=== PATIENT | female | born 1970 | race Caucasian/White ===

== ENCOUNTER → 2018-08-23 08:18 | Outpatient (CLI) | payer OTHER, SELFPAY ==
--- NOTE | 2018-08-23 08:21 | MM_ITS ---
MM Dig screening mamm BI w/CAD CAD Screening COMPARISON: Digital mammograms with CAD 12/15/2016 and 12/10/2015 INDICATION: There is no personal or family history of breast cancer. There has been a previous biopsy left breast for benign disease. TECHNIQUE: Standard CC and MLO images were obtained. R2 CAD reviewed. FINDINGS: Prominent diffuse and heterogenic fibroglandular densities are seen in the central portions of both breast. There are few benign-appearing microcalcifications in each breast. Again noted is a biopsy clip left breast. There is no new or suspicious lesion in either breast and there are no suspicious microcalcifications. IMPRESSION: Moderate diffuse breast density with no suspicious lesion seen BI-RADS Category: 2 Benign Finding(s) RECOMMENDED FOLLOW-UP: 1YR - 1 YEAR FOLLOW-UP (A letter has been sent to the patient regarding results of the study.)
== END ==
PROVIDERS: PCP Family Medicine; Visit Provider Obstetrics & Gynecology
DX: Z12.31 Encounter for screening mammogram for malignant neoplasm of breast (principal)
CPT/HCPCS: 77067

== ENCOUNTER → 2019-02-24 08:38 | Outpatient (CLI) | payer OTHER, SELFPAY ==
--- NOTE | 2019-02-24 08:42 | US_ITS ---
US gallbladder HISTORY: Cholelithiasis, epigastric pain ITS.REASON: gallstones ORDERING PHYSICIAN: Ronn Rosas MD PATIENT AGE: 48 years Comparison: None FINDINGS: PANCREAS: Unremarkable. No obvious mass or abnormal fluid collection. No ductal dilatation LIVER: There is a 18 mm cyst in the right hepatic lobe RIGHT KIDNEY: Unremarkable. Normal size and echogenicity. No hydronephrosis GALLBLADDER: Multiple gallstones are present. The gallbladder is contracted with a thickened wall measuring up to 5 mm. No pericholecystic fluid is evident. Common bile duct is normal at 3 mm. IMPRESSION: Cholelithiasis with thickened gallbladder wall Hepatic cyst
== END ==
PROVIDERS: PCP Family Medicine; Visit Provider Surgery
DX: K82.9 Disease of gallbladder, unspecified (principal); K80.20 Calculus of gallbladder without cholecystitis without obstruction
CPT/HCPCS: 76705

== ENCOUNTER → 2019-03-01 16:50 | Outpatient (CLI) | payer OTHER, SELFPAY ==
[2019-03-01 17:01] LABS: Basophils # 0.1 K/mm3 (0-0.2); Basophils % 0.8 % (0.1-2.0); Eosinophils # 0.2 K/mm3 (0.0-0.4); Eosinophils % 1.7 % (0.1-12.0); Hematocrit 38.3 % (37.0-47.0); Hemoglobin 12.7 g/dL (12.2-16.2); Lymphocytes # 1.6 K/mm3 (0.7-4.5); Lymphocytes % 16.2 % (10-50); Mean Corpuscular HGB Conc 33.1 g/dL (31.8-35.4); Mean Corpuscular Hemoglobin 28.9 pg (27.0-31.2); Mean Corpuscular Volume 87.2 fl (81-99); Mean Platelet Volume 7.6 fl (7.4-10.4); Monocytes # 0.4 K/mm3 (0.1-1.0); Monocytes % 3.8 % (1.7-9.3); Neutrophils # 7.9 K/mm3 (1.8-7.8); Neutrophils % 77.5 % (37.0-80.0); Platelet Count 311 K/mm3 (142-424); Red Blood Count 4.39 M/mm3 (4.20-5.40); Red Cell Distribution Width 12.8 % (11.5-17.5); White Blood Count 10.2 K/mm3 (4.8-10.8)
[2019-03-01 19:02] LABS: Alanine Aminotransferase 18 U/L (12-78); Albumin Level 3.5 gm/dL (3.4-5.0); Alkaline Phosphatase 120 U/L (46-116); Anion Gap 12.6 mEq/L (5-15); Aspartate Amino Transferase 6 U/L (15-37); Bilirubin,Total 0.6 mg/dL (0.2-1.0); Blood Urea Nitrogen 6 mg/dL (7-18); Calcium 8.8 mg/dL (8.5-10.1); Carbon Dioxide 27 mmol/L (21.0-32.0); Chloride 100 mmol/L (98-107); Creatinine,Serum 0.77 mg/dL (0.55-1.02); Estimated Glomerular Filt Rate 81 ml/min (>60); GFR (African American) 98 ML/MIN (>60); Globulin 3.6 gm/dl (1.3-3.2); Glucose 96 mg/dL (74-106); Potassium 3.6 mmoL/L (3.5-5.1); Sodium 136 mmol/L (136-145); Total Protein,Serum 7.1 gm/dL (6.4-8.2)
== END ==
PROVIDERS: Visit Provider Surgery
DX: K80.20 Calculus of gallbladder without cholecystitis without obstruction (principal)
CPT/HCPCS: 36415; 80053; 85025

== ENCOUNTER → 2020-05-28 10:18 | Outpatient (CLI) | payer OTHER, SELFPAY | PROVIDERS: PCP Family Medicine; Visit Provider Family Medicine | DX: R00.2 Palpitations (principal) | CPT/HCPCS: 93225; 93226 ==

== ENCOUNTER → 2020-07-24 11:19 | Outpatient (CLI) | payer OTHER, SELFPAY ==
[2020-07-24 13:12] LABS: Basophils # 0.1 K/mm3 (0-0.2); Basophils % 0.7 % (0.1-2.0); Eosinophils # 0.3 K/mm3 (0.0-0.4); Eosinophils % 2.5 % (0.1-12.0); Hematocrit 43.8 % (37.0-47.0); Hemoglobin 15.3 g/dL (12.2-16.2); Lymphocytes # 1.4 K/mm3 (0.7-4.5); Lymphocytes % 13.7 % (10-50); Mean Corpuscular HGB Conc 34.8 g/dL (31.8-35.4); Mean Corpuscular Volume 89.1 fl (81-99); Mean Platelet Volume 8.2 fl (7.4-10.4); Monocytes # 0.4 K/mm3 (0.1-1.0); Monocytes % 3.8 % (1.7-9.3); Neutrophils # 7.9 K/mm3 (1.8-7.8); Neutrophils % 79.3 % (37.0-80.0); Platelet Count 279 K/mm3 (142-424); Red Blood Count 4.92 M/mm3 (4.20-5.40); Red Cell Distribution Width 13.5 % (11.5-17.5)
[2020-07-26 06:27] LABS: Covid-19 Nasal PCR Sendout Lex NOT DETECTED
== END ==
PROVIDERS: PCP Family Medicine; Visit Provider Family Medicine
DX: Z03.818 Encounter for observation for suspected exposure to other biological agents ruled out (principal)
CPT/HCPCS: 36415; 85025; U0004

== ENCOUNTER → 2020-10-26 12:41 | Outpatient (CLI) | payer OTHER, SELFPAY ==
--- NOTE | 2020-10-26 12:44 | XR_ITS ---
PROCEDURE: XR SHOULDER LT MIN 2V CLINICAL INDICATION: LT SHOULDER PAIN Left shoulder pain COMPARISON: No exams were available for comparison FINDINGS: No fracture or dislocation. No lytic or blastic change. There is normal mineralization. The joint spaces are well-preserved. No significant degenerative/arthritic changes. No erosive changes evident. Other findings:None. IMPRESSION: No acute findings. Dictated by: Jim Holguin MD 10/26/2020 14:43 Jim Holguin MD in [place] 10/26/2020 14:43
== END ==
PROVIDERS: PCP Family Medicine; Visit Provider Family Medicine
DX: M25.512 Pain in left shoulder (principal)
CPT/HCPCS: 73030

== ENCOUNTER 2020-12-12 15:00 | Outpatient (RCR) | payer OTHER, SELFPAY ==
--- NOTE | 2020-10-31 08:27 | HMH.OTOPEV ---
OT Inpatient Evaluation Rehab OT Outpatient Eval Start: 10/31/20 08:18 Freq: Status: Active Protocol: Document 10/31/20 08:19 RMMICHI (Rec: 10/31/20 08:27 [id number] Electronically Signed By Ligia Roberts OT 10/31/20 08:19 Outpatient Therapy Subjective History Subjective History Pt is a 50 year old female who reports to therapy for initial evaluation to L shoulder. Pt reports ~3 months ago she was throwing a ball for her dog and threw it awkwardly . After the throw she felt a pop . Since then she has experienced a constant dull ache and limited motion due to pain. Pt does demonstrate with decreased AROM and strength at left shoulder. Pt will continue to be seen twice a week in order to address all L shoulder deficits. Chief Complaint Pain,Stiff,Weakness Symptom Type Ache,Dull Symptoms Relieved By Nothing Symptoms Aggravated By Physical Activity,Lifting Prior Functional Limitations None Current Functional Limitations Reaching,Lifting,Housework, Dressing,Sleeping,Recreation Activity Symptom Description Constant but Variable Level of pain today (0-10) 3 Pain scale - at its best (0-10) 2 Pain scale - at its worst (0-10) 7 Shoulder/Elbow Eval Shoulder Objective Measurements Shoulder ROM Left Shoulder Abduction Active Range of 95 degrees Motion (degrees) Shoulder Flexion Active Range of Motion 110 degrees (degrees) Query Text: Shoulder External Rotation Active Range 55 degrees of Motion (degrees) Shoulder Internal Rotation Active Range 35 degrees of Motion (degrees) Shoulder MMT Shoulder Extension Strength Grade 3- Fair- Shoulder Flexion Strength Grade 3- Fair- Shoulder External Rotation Strength 3- Fair- Grade Shoulder Internal Rotation Strength 3- Fair- Grade Shoulder Strength Patient Testing Sitting Position Shoulder Special Tests impingement sign present shoulder exam left standard Shoulder Empty Can (Supraspinatus) Test Positive Left Shoulder Boles-Noah Impingement Positive Left Test Shoulder Neer Impingement Test Positive Left
--- NOTE | 2020-11-26 15:54 | HMH.RHREAS ---
Rehab Reassessment Rehab OP Re-assessment Start: 11/26/20 14:55 Freq: Status: Active Protocol: Document 11/26/20 14:56 JOSE (Rec: 11/26/20 15:54 [email or web address] [id number]) Electronically Signed By Ligia Roberts OT 11/26/20 14:56 Rehab Re-assessment Subjective Subjective They denied my MRI. Objective Objective Notes Pt continues to be seen twice weekly in order to address left shoulder deficits. Each session pt engages in L shoulder AAROM, AROM, and strengthening exercises. Pt is also passively ranged at left shoulder due to decreased AROM. Modalities are provided in order to decrease pain/inflammation. Assessment Progress Assessment Slower Than Expected Assessment Notes Pt continues to demonstrate with decreased AROM/strength despite participation in therapy. She does not demonstrate improvement in either area after re- assessment. Pt also continues to c/o a 7/10 at left shoulder at worst. Pt does not feel she has made much improvement since starting therapy. Pt had recently returned to doctor in order to try to get a MRI on left shoulder. However, insurance denied a MRI and suggest she continue therapy for 6 weeks. Current AROM L shoulder Flex: 105 degrees Abd: 95 degrees ER: 25 degrees IR: 45 degrees Patient goals met STG met: 3 & 5 Goals Not Met See below Revised Goals LTG 1-5 ST, 2, & 4 Plan Plan Continue with OT plan of care Frequency of Therapy 2 x's a week Duration of therapy 4 more weeks. Time and Billing Re-Eval Time 10 Re-Eval Billing Units 1 PHYSICIAN CERTIFICATION: I certify the specified therapy services for Yris Mehta are required, authorized, and reviewed every 30 days.
== END 2020-12-12 15:05 | disposition home or self-care (01) ==
LOC: OT 15:00
PROVIDERS: Visit Provider Family Medicine
DX: M25.512 Pain in left shoulder (principal)
CPT/HCPCS: 97014; 97110; 97140; 97164; 97166; G0283

== ENCOUNTER → 2020-12-28 15:07 | Outpatient (CLI) | payer OTHER, SELFPAY ==
--- NOTE | 2020-12-28 15:34 | MR_ITS ---
PROCEDURE INFORMATION: Exam: MR Left Upper Extremity Joint Without Contrast; Shoulder Exam date and time: 12/28/2020 3:34 PM Age: 50 years old Clinical indication: Pain; Shoulder; Left; Additional info: Left shoulder pain. Left shoulder pain with limited rom. Aug 2020 patient injured arm while throwing a ball. No prior surgery. Prior x-ray 10-26-20 TECHNIQUE: Imaging protocol: MR of the Left upper extremity without contrast. Exam focused on the shoulder. COMPARISON: CR XR SHOULDER LT MIN 2V 10/26/2020 1:12 PM FINDINGS: Bones/joints: No acute fracture. No dislocation. Fluid: No significant joint effusion. Small fluid within subacromial-subdeltoid bursa. Glenoid labrum: Grossly intact. Supraspinatus tendon: Moderate tendinosis. Articular surface fraying of tendon. No full-thickness tear. Infraspinatus tendon: Mild tendinosis. No definite tear. Subscapularis tendon: No definite tear. Teres minor tendon: No definite tear. Tendon of biceps brachii: Intact. Glenohumeral ligaments: Grossly intact. Muscles: Unremarkable. Soft tissues: Unremarkable. IMPRESSION: Supraspinatus and infraspinatus tendinosis.
== END ==
PROVIDERS: PCP Family Medicine; Visit Provider Family Medicine
DX: M25.512 Pain in left shoulder (principal); M67.912 Unspecified disorder of synovium and tendon, left shoulder
CPT/HCPCS: 73221

== ENCOUNTER → 2021-01-03 12:03 | Outpatient (CLI) | payer OTHER, SELFPAY ==
[2021-01-03 12:50] LABS: Alanine Aminotransferase 15 U/L (12-78); Albumin Level 4.2 g/dl (3.5-5.0); Albumin/Globulin Ratio 1.3 (1.1-1.8); Alkaline Phosphatase 102 U/L (38-126); Anion Gap 9.9 mEq/L (5-15); Aspartate Amino Transferase 21 U/L (14-36); Bilirubin,Total 0.7 mg/dl (0.2-1.3); Blood Urea Nitrogen 10 mg/dl (7-17); Calcium 9.5 mg/dl (8.4-10.2); Carbon Dioxide 26 mmol/L (22.0-30.0); Chloride 104 mmol/L (98-107); Estimated Glomerular Filt Rate 89 ml/min (>60); GFR (African American) 108 ML/MIN (>60); Globulin 3.2 g/dL (1.3-3.2); Glucose 81 mg/dl (74-100); Potassium 3.9 mmoL/L (3.5-5.1); Sodium 136 mmol/L (136-145); Total Protein,Serum 7.4 g/dl (6.3-8.2)
[2021-01-03 13:01] LABS: NT Pro Brain Natriuretic Pep. 92.2 pg/mL (0-125)
[2021-01-03 13:22] LABS: Thyroid Stimulating Hormone 1.63 uIU/mL (0.465-4.68)
[2021-01-03 14:11] LABS: 25-OH Vitamin D, Total 84.4 ng/mL (30-100)
== END ==
PROVIDERS: Visit Provider Family Medicine
DX: R06.02 Shortness of breath (principal); R63.4 Abnormal weight loss; E55.9 Vitamin D deficiency, unspecified
CPT/HCPCS: 80053; 82306; 83880; 84443

== ENCOUNTER → 2021-01-09 09:16 | Outpatient (CLI) | payer OTHER, SELFPAY ==
--- NOTE | 2021-01-09 | CA_ITS ---
APPROVED REPORT EXAM: Comprehensive 2D, Doppler, and color-flow Echocardiogram Pharmacovigilance Scientist: Josey Aguilar CRT Ht: 5 ft 4 in Wt: 210lbs BSA: 2.00 BP: 130/80 mmHg Indications: Shortness of Breath, Palpitations, Fatigue, Hypertension/HDD 2D Dimensions LVOT 1.97 cm (M/F) 1.5-2.5 LA Volume 39.70 mL LA Volume Index 19.90 mL/m2 (M/F) 16-34 M-Mode Dimensions RVDd 2.51 cm (0.9-2.6) LA Diam 3.34 cm (1.9-4.0) LVDd 4.48 cm (3.5-5.7) Ao Diam 2.91 cm (2.0-3.7) LVDs 2.94 cm (3.5-5.7) IVSd 1.20 cm (0.6-1.1) PWd 0.64 cm (0.6-1.1) EF (Teich) 63.60% FS 34.40% EDV (Teich) 91.50 mL TAPSE 2.73 (<1.7) ESV (Teich) 33.30 mL LV Diastology E Decel Time 203.00 (160-240 msec) E/A Ratio 1.04 MED E' 6.40 (< 7 cm/sec) MED A' 8.10 cm/s E'/MED E' Ratio 10.61 (>14) LAT E' 12.20 (<10 cm/sec) LAT A' 12.70 cm/s E/LAT E' Ratio 5.57 (>14) Aortic Valve AO Peak GR. 7.40 mmHg Mitral Valve MV A Velocity 65.00 (40-130 cm/s) E/A Ratio 1.04 MV Decel. Time 203.00 (160-240 ms) Pulmonary Valve PV Peak Velocity 69.00 (50-150 cm/s) Tricuspid Valve TR P. Velocity 245.00 cm/s RAP Estimate 10.00 mmHg RVSP 34.10 mmHg Left Ventricle Left atrium normal size, left ventricle is normal size, there is no concentric left ventricular hypertrophy, visually estimated ejection fraction 55% with no regional wall motion abnormality, diastolic parameters are within normal range. Right Ventricle Right atrium and right ventricle are normal size and contractility. Aortic Valve Aortic valve is grossly normal, there is no aortic stenosis or aortic insufficiency. Mitral Valve Mitral valve grossly normal, there is trace mitral regurgitation. Tricuspid Valve Tricuspid grossly normal, there is trace tricuspid regurgitation, tricuspid regurgitation jet velocity is inadequate for calculation of the right ventricular systolic pressure. Pulmonic Valve Pulmonic valve is poorly visualized. Great Vessels Aortic root is normal size. Pericardium No significant pericardial effusion noted. Conclusion 1. Normal left ventricular size, preserved left ventricular systolic function, visually estimated ejection fraction 55% with no regional wall motion abnormality, diastolic parameters are within normal range. 2. Trace mitral and tricuspid regurgitation. 3. No significant pericardial effusion noted. Electronically signed by : Otto Ortiz, 01/10/2021 13:06:51
--- NOTE | 2021-01-09 10:04 | XR_ITS ---
PROCEDURE: XR CHEST 2V CLINICAL HISTORY: Shortness of air COMPARISON: No exams were available for comparison FINDINGS: The cardiomediastinal silhouette and pulmonary vascularity are within normal limits. The lungs are clear without infiltrates, suspicious nodules, or pleural effusions. No acute bony abnormalities. IMPRESSION: No acute findings. Dictated by: Jim Holguin MD 01/09/2021 12:59 Jim Holguin MD in [place] 01/09/2021 12:59
== END ==
LOC: RT 09:17
PROVIDERS: PCP Family Medicine; Visit Provider Family Medicine
DX: R06.02 Shortness of breath (principal)
CPT/HCPCS: 71046; 93306

== ENCOUNTER 2021-06-23 10:55 | Emergency (ER) | payer OTHER, SELFPAY ==
[2021-06-23 11:20] VITALS: BP 141/86; PULSE 85; RESP 19; TEMP 37; O2SAT 96; BMI 36.0
--- NOTE | 2021-06-23 11:52 | HMH.EDUTC ---
[facility] [place] Disposition Clinical Impression: Strep throat Disposition: Home, Self-Care Condition on Discharge: Good Instructions: DI for Strep Throat, Strep Throat Additional Instructions: *Monitor Temp, Over the counter Motrin or Tylenol as directed/as needed Tylenol every 4 hours and Motrin every 6 hours (as long as your family doctor has told you that you can take it) for fever or pain. and straight to ER if unable to lower temp less than 101.0 after medication given *Warm salt water gargles may help to soothe the throat *Throat Lozenges *Warm fluids like tea with honey may help to soothe the throat *Sleep elevated *Humidifier/Vaporizer *If you did not take Penicillin shot or was unable to, start taking antibiotic immediately and make sure that you take it for the FULL length of time although you should start to feel better in 24-48 hours *change toothbrush and toothpaste 24-48 hours after starting to take antibiotics so you do not reinfect yourself Monitor Temp. Tylenol and/or Ibuprofen as needed. ER if fever is no less than 101 despite alternating Tylenol and Ibuprofen * Encourage fluids, water, Gatorade, powerade, pedialyte if infant/toddler/or child *Cold fluids, popsicles and ice cream may feel good on his throat Follow up IMMEDIATELY for new or worsening symptoms or no Noticeable improvement over the next 48-72 hours. 911 for difficulty breathing or swallowing You were tested for today for COVID19 your test result should be back in the next 24-48 hours, you may check your test results on the [facility] [employer] Portal if you have trouble logging on you may call You was given a handout with instructions for Self Quarantine and Self isolation for while you wait on test results and what to do if they are positive If you are positive the Health Dept will be contacting you also Make sure to take your Vitamins Vit. C Vit D and Zinc if you can take them Prescriptions: Benzonatate [Benzonatate 100mg cap] 100 mg PO Q8HP PRN #30 cap PRN Reason: Cough Transmission Status: Pending to [facility] # Azithromycin [Z-Jose Juan 250mg Tab] 250 mg PO DIRECTED #6 tab Transmission Status: Pending to [facility] # Referrals: Tavo King MD [Primary Care Provider] - As needed Forms: Work/School Release Time of Disposition: 12:21 Medical Decision Making - Josef Inquiry Pt receiving controlled substance: No Josef was queried for this patient: No Vital Signs: 06/23/21 11:20 Temperature 98.6 F Temperature Source Oral Pulse Rate [Right Brachial] 85 Respiratory Rate 19 Blood Pressure [Right Arm] 141/86 H Blood Pressure Mean [Right Arm] 104 Blood Pressure Source [Right Arm] Automatic Cuff Blood Pressure Position [Right Arm] Sitting 02 Sat by Pulse Oximetry 96 Oxygen Delivery Method Room Air - Lab Data Lab results reviewed: Yes: I reviewed the patient's lab results. Lab Results 06/23/21 12:10: Strep Scn Rapid Clinic Positive A Orders (Tests/Meds): ORDERS Category Date Time Status Covid-19 Nasal PCR ([facility]) Routine Lab 06/23/21 11:32 Received [facility] [place] HPI - General Stated complaint: covid symptoms Time Seen by Provider: 06/23/21 11:52 Mode of Arrival: Ambulatory Source of Information: Patient Limitations: No Limitations Description of Symptoms (Recalled from Triage Doc. by RN): PATIENT C/O SOA, HEADACHE, AND SORE THROAT X 1 WEEK. REQUESTING COVID TEST HEENT Symptoms (Recalled from RN notes): Yes Resp Symptoms (Recalled from RN notes): Yes Skin Symptoms (Recalled from RN notes): No MS Symptoms (Recalled from RN notes): No Functional Status (Recalled from RN notes): WNL - History of Present Illness Provider Complaint: Patient states that she has not felt well for about a week States that she has been having sorethroat, headache, sinus congestion and at times she feels a little SOA Denies known exposure to COVID but wanted to get tested States that she was up most of the night coughing
[2021-06-23 12:11] LABS: UTC Strep Screen (Rapid) Positive (Negative)
[2021-06-23 12:33] VITALS: BP 141/86; PULSE 85; RESP 19; TEMP 37; O2SAT 96
== END 2021-06-23 12:38 | disposition home or self-care (01) ==
PROVIDERS: Emergency Provider Nurse Practitioner; PCP Family Medicine
DX: J02.0 Streptococcal pharyngitis (principal); Z20.822 Contact with and (suspected) exposure to COVID-19; F41.9 Anxiety disorder, unspecified
CPT/HCPCS: 87880; 99203; C9803; G0463; U0003; U0005

== ENCOUNTER → 2022-08-08 15:18 | Outpatient (CLI) | payer OTHER, SELFPAY | PROVIDERS: PCP Student in an Organized Health Care Education/Training Program; Visit Provider Student in an Organized Health Care Education/Training Program | DX: R68.89 Other general symptoms and signs (principal) ==

== ENCOUNTER → 2022-08-08 15:47 | Outpatient (CLI) | payer OTHER, SELFPAY ==
--- NOTE | 2022-08-08 15:50 | MM_ITS ---
PROCEDURE INFORMATION: Exam: MG Bilateral Screening 3D Mammography Exam date and time: 08/08/2022 3:43 PM Age: 52 years old Clinical indication: Screening mammogram TECHNIQUE: Imaging protocol: Bilateral Screening tomosynthesis and 2D mammography including computer-aided detection (CAD) when performed. COMPARISON: 1. MG SCBI MM Dig screening mamm BI w/CAD 08/23/2018 8:38 AM 2. MG DMSB DIG MAMM-SCREEN SLICK W/CAD 12/15/2016 8:35 AM 3. MG DMSB DIG MAMM-SCREEN SLICK 11/29/2014 8:29 AM 4. MG DMSB DIG MAMM-SCREEN SLICK 11/21/2013 8:39 AM FINDINGS: MAMMOGRAPHY: Breast composition: The breast is heterogeneously dense, which may obscure small masses. Mass: None. Architectural distortion: No new or suspicious architectural distortion. Calcifications: Stable benign-appearing calcifications are present. No new or suspicious cluster of microcalcifications have developed. Asymmetric density: No new or suspicious asymmetric density is present Skin thickening: None. Axillary adenopathy: None. IMPRESSION: No mammographic evidence of malignancy. Recommend annual screening mammography unless otherwise clinically indicated. ASSESSMENT: BI-RADS category 2: Benign
== END ==
PROVIDERS: PCP Family Medicine; Visit Provider Family Medicine
DX: R68.89 Other general symptoms and signs (principal); Z12.31 Encounter for screening mammogram for malignant neoplasm of breast; J02.0 Streptococcal pharyngitis
CPT/HCPCS: 77063; 77067; C9803; U0003; U0005

== ENCOUNTER 2023-09-18 23:45 | Outpatient (CLI) | payer OTHER, SELFPAY | END 2023-09-18 23:59 | LOC: LAB.DROPOF 23:45 | PROVIDERS: PCP Student in an Organized Health Care Education/Training Program; Visit Provider Student in an Organized Health Care Education/Training Program | DX: J02.9 Acute pharyngitis, unspecified (principal) | CPT/HCPCS: 87070 ==

== ENCOUNTER 2024-07-05 09:15 | Emergency (ER) | payer SELFPAY ==
[2024-07-05 09:16] VITALS: BP 138/90; PULSE 73; RESP 20; TEMP 36.7; O2SAT 99; BMI 30.2
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
--- NOTE | 2024-07-05 10:04 | PC.NURSE ---
pt to xray via wheelchair
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
[2024-07-05 10:46] VITALS: BP 110/82; PULSE 65; RESP 18; TEMP 36.7; O2SAT 98
[2024-07-05 10:57] VITALS: BP 127/86; PULSE 61; RESP 18; TEMP 36.7; O2SAT 99
== END 2024-07-05 11:05 | disposition home or self-care (01) ==
PROVIDERS: Emergency Provider Emergency Medicine; PCP Family Medicine
DX: R07.89 Other chest pain (principal); M25.512 Pain in left shoulder; V49.49XA Driver injured in collision with other motor vehicles in traffic accident, initial encounter; Y93.89 Activity, other specified; Y92.410 Unspecified street and highway as the place of occurrence of the external cause
CPT/HCPCS: 71250; 99284

== ENCOUNTER 2024-07-26 07:50 | Outpatient (CLI) | payer OTHER, SELFPAY ==
--- NOTE | 2024-07-26 07:52 | MM_ITS ---
PROCEDURE INFORMATION: Exam: MG Bilateral Screening 3D Mammography Exam date and time: 07/26/2024 7:48 AM Age: 54 years old Clinical indication: Screening examination TECHNIQUE: Imaging protocol: Bilateral Screening tomosynthesis and 2D mammography including computer-aided detection (CAD) when performed. COMPARISON: 1. MG MM DIG SCREENING MAMM BI W/CAD 08/08/2022 3:43 PM 2. MG SCBI MM Dig screening mamm BI w/CAD 08/23/2018 8:38 AM FINDINGS: MAMMOGRAPHY: Breast composition: The breasts are heterogeneously dense, which may obscure small masses. Mass: No suspicious masses. Architectural distortion: None. Calcifications: No suspicious calcifications. Asymmetric density: None. Skin thickening: None. Axillary adenopathy: None. IMPRESSION: No mammographic evidence of malignancy. Annual screening is recommended unless otherwise clinically indicated. ASSESSMENT: BI-RADS Category 1: Negative.
== END 2024-07-26 23:59 | disposition home or self-care (01) ==
LOC: RAD 07:50
PROVIDERS: PCP Family Medicine; Visit Provider Family Medicine
DX: Z12.31 Encounter for screening mammogram for malignant neoplasm of breast (principal)
CPT/HCPCS: 77063; 77067

== ENCOUNTER 2024-08-31 10:06 | Outpatient (CLI) | payer BC, SELFPAY | END 2024-08-31 23:59 | disposition home or self-care (01) | LOC: LAB.DROPOF 09-01 09:17 | PROVIDERS: PCP Nurse Practitioner Family; Visit Provider Nurse Practitioner Family | DX: R39.9 Unspecified symptoms and signs involving the genitourinary system (principal) | CPT/HCPCS: 87086 ==

== ENCOUNTER 2025-01-03 07:29 | Outpatient (CLI) | payer BC, SELFPAY ==
--- NOTE | 2025-01-03 07:33 | CT_ITS ---
FINAL REPORT TECHNIQUE: NASCET technique utilized for stenosis evaluation. CLINICAL HISTORY: VERTEBRAL ARTERY PAIN COMPARISON: None FINDINGS: AORTIC ARCH: The origins of the great vessels are unremarkable in appearance without evidence of significant stenosis. RIGHT CAROTID: No significant stenosis is seen of the cervical common or internal carotid artery. LEFT CAROTID: No significant stenosis seen of the cervical common or internal carotid artery. VERTEBRALS: The vertebrals are patent. No significant stenosis is present. Note is made of bilateral maxillary sinus mucoperiosteal thickening. IMPRESSION: No significant arterial abnormality. Bilateral maxillary sinus mucoperiosteal thickening. Reviewed, Interpreted and Dictated by Patrick Hogan MD Transcribed by Cindi Ventura Authenticated and [facility]
[2025-01-03 08:00] LABS: Blood Urea Nitrogen 9 mg/dl (7-17); Estimated Glomerular Filt Rate 88 ml/min (>60); GFR (African American) 106 ML/MIN (>60)
[2025-01-03] MEDS: IOPAMIDOL-370 (76%);100ML BOTTLE 80 ML IV (08:40)
[2025-01-03] MEDS: 0.9 % SODIUM CHLORIDE 50 ML VIAL IV (08:40)
[2025-01-03] MEDS: SODIUM CHLORIDE 0.9% 10ML SYR (RAD ONLY) 10 ML IV (08:40)
== END 2025-01-03 23:59 | disposition home or self-care (01) ==
PROVIDERS: PCP Family Medicine; Visit Provider Family Medicine
DX: J34.89 Other specified disorders of nose and nasal sinuses (principal); R52 Pain, unspecified
CPT/HCPCS: 36415; 70498; 82565; 84520; Q9967

== ENCOUNTER 2025-03-16 09:10 | Outpatient (CLI) | payer BC, SELFPAY ==
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
--- OUTSIDE RECORDS SUMMARY | 2024-11-07 09:45 | XMS_ITS ---
Author Organization [facility] Address 1210 [facility] [address] [place] [id number] Care Team Providers Care Aspnet Developer Name Role Phone Tavo King Primary Care Provider Chantelle Rosenbaum [phone] Results Component Value Reference Range Notes Urinalysis [...] Encounter Location Date Provider Diagnosis [facility] [address] [place] [id number] 11/07/2024 Tavo King Polydipsia R63.1 ; Pyuria R82.81 and Microscopic hematuria R31.29 Assessments Encounter Date Diagnosis (ICD Code) Assessment Notes Treatment Notes Treatment Clinical Notes Section Notes 11/07/2024 Polydipsia (ICD-10 - R63.1) 11/07/2024 Pyuria (ICD-10 - R82.81) 11/07/2024 Microscopic hematuria (ICD-10 - R31.29) Plan Of Treatment Next Appt Details Provider Name:Tavo Rodnye ry, 06/12/2025 09:15:00 AM, [address], [address], [place], [place], [id number], Progress Notes * JOSECrowJoonB:1970 (54 yo F)Acc No.[id number]:11/07/2024 Patient: Yris HERNANDEZ Provider: Roque King M.D. :1970 A ge:54 Y S ex:Female Date:11/07/2024 Address:[address] [place] [address] , [id number] Subjective: * Chief Complaints: * [...] Pastor 11/07/2024 02:01: 56 PM >Tavo King T 11/09/2024 5:33:01 PM > Spoke to patient. 2.?Pyuria?LAB: TEN-UTI panel (Collection Date & Time - 11/07/2024)?Abnormal* Tavo King T 11/09/2024 2: 59:49 PM > Spoke to patient. 3.?Microscopic hematuria?LAB: TEN-UTI panel (Collection Date & Time - 11/07/2024)?Abnormal* Tavo King T 11/09/2024 2: 59:49 PM > Spoke to patient. * Images: Billing Information: * Visit Code: * Procedure Codes: * Electronic signature of Margarita King MD on 03/16/2025 at 09:14 AM EDT Sign off status: Pending * Provider: Roque King M.D. Date: 0 11/07/2024 Generated for Mariama oakley/Kat/Bhavnaitting on: 0 03/16/2025 09:14 AM EDT
--- OUTSIDE RECORDS SUMMARY | 2024-12-09 06:45 | XMS_ITS ---
Author Organization [facility] Address [facility] 36 [facility] [address] [place] [id number] Care Team Providers Care Medical Records Technician Name Role Phone Tavo King Primary Care Provider [phone] Chantelle Rosenbaum [phone] Allergies Allergen (clinical drug ingredient) Drug/Non Drug Allergy documented on EMR Reaction Allergy Type Onset Date Status Substance with penicillin structure and antibacterial mechanism of action (substance) Penicillins Unknown Drug Allergy Active Results Component Value Reference Range Notes P-Vitamin D 25-Hydroxy Reviewed date:12/13/2024 12:26:37 PM Interpretation:Normal Performing Lab: Notes/Report: Test performed by [facility] [employer], [facility] [address] [place] [address] , [address], [place] [address] Ryley Mathis MD, Pool Servicer CLIA: [id number] Vitamin D 25-Hydroxy 43.2 30.0-100.0 ng/mL Interpretation [...] W/U Status Risk Notes Problem Essential hypertension (45310968) Essential hypertension (I10) Active confirmed Vital Signs Blood pressure systolic 120 mm Hg 12/10/19 25 Blood pressure diastolic 72 mm Hg 025 Heart Rate 74 /min 12/09/2024 Height 64 in 12/09/2024 Weight 179 lbs 12/09/2024 BMI 30.72 kg/m2 12/09/2024 Encounters Encounter Location Date Provider Diagnosis [place] [address] [place] [phone] 12/09/2024 Tavo King Vitamin D deficiency E55.9 [...] Up: 6 Months, Reason: Provider Name:Tavo costa, 06/12/2025 09:15:00 AM, [address], [place], [phone], Progress Notes * Basil JOSE:1970 (54 yo F)Acc No.[id number]:12/09/2024 Progress Notes Patient: Yris HERNANDEZ Provider: Roque King M.D. :1970 A ge:54 Y S ex:Female Date:12/09/2024 Address:[address] [place], [place] [id number] Subjective: * Chief Complaints: * 1 . [...] Hospitalization/Major Diagno stic Procedure: Aman tam Stones- [facility] ER 02/26/2013. * Family History: F [...] Boucher 12/12/2024 08:58 :32 AM > called [place]; was told to submit via [employer] but there is no option for this insurance typeTaJesica rothman 12/19/2024 10:44:46 AM > spoke with [employer]; case has been approved but she did not have a validity date; case#[id number]; faxed to [facility] Rosy Madrigal 01/04/2025 08:12:13 AM > See phone encounter Notes: Xray report from chiropractor reviewed, see report?? * Procedure Codes: 3 074F SYST BP LT 130 MM HG, 3078F DIAST BP < 80 MM HG * Follow Up: 6 Months * Images: Billing Information: * Visit Code: 46689 Office Visit, Est Pt., Level 4. * Procedure Codes: 3074F SYST BP LT 130 MM HG. 3078F DIAST BP < 80 MM HG. * Electronic signature of Margarita King MD on 03/16/2025 at 09:14 AM EDT Sign off status: Pending * Provider: Roque King M.D. Date: 0 12/09/2024 Generated for Mariama oakley/Kat/Namia on: 0 03/16/2025 09:14 AM EDT History [...]
--- OUTSIDE RECORDS SUMMARY | 2025-03-16 09:14 | XMS_ITS | Patient Health Record ---
Author Organization [facility] Address [address] [facility] [address] [place] [id number] Care Team Providers Care Diesel Powerplant Supervisor Name Role Phone Tavo King Primary Care Provider Chantelle Rosenbaum [phone] Allergies Allergen (clinical drug ingredient) Drug/Non Drug [...] 02:59:59 PM Interpretation:Abnormal Performing Lab: Notes/Report: Abnormal P-Vitamin D 25-Hydroxy Reviewed date:11/06/2024 11:57:43 AM Interpretation:19.7 Performing Lab: Notes/Report: Test performed by [facility] [address] [place] [address] , [address], [place] [address] Ryley Mathis MD, [employer] CLIA: [id number] Vitamin D 25-Hydroxy 19.7 30.0-100.0 ng/mL Interpretation of Vitamin D 25 OH: < 20 ng/mL - Deficiency 20 - 29 ng/mL - Insufficiency 30 - 100 ng/mL - Sufficiency > 100 ng/mL - Super-therapeutic- toxicity may occur above this level. Clinical correlation required. P-Comprehensive Metabolic Pa rashid (CMP) Reviewed date:11/06/2024 11:57:43 AM Interpretation:AP 127 Performing Lab: Notes/Report: Test performed by [facility] [address] [place] [address] , [address], [place] [address] Ryley Mathis MD, [employer] CLIA: [id number] Sodium 138 135-145 mmol/L Potassium 4.3 3.5-5.3 [...] <0.2-1.2 mg/dL A/G Ratio 1.4 1.1-2.5 P-Vitamin B12 Reviewed date:11/06/2024 11:57:43 AM Interpretation:Normal Performing Lab: Notes/Report: Test performed by [employer] [address] [place] [address] , [address], [place] [address] Ryley Mathis MD, [employer] CLIA: [id number] Vitamin B12 148 213-0655 pg/mL P-Alkaline Phosphatase Isoen zymes Reviewed date:11/06/2024 11:57:43 AM Interpretation:AP 146, AP liver Calc 99 Performing Lab: Notes/Report: ALK-PHOSPHATASE BONE CALC 47 0-55 U/L ALK-PHOSPHATASE OTHER CALC 0 Performed By: [employer] [address] [place] [address] [employer]: Kiet Dowell MD, PhD CLIA Number: [id number] Alkaline Phosphatase 146 40-120 U/L ALK-PHOSPHATASE LIVER CALC 99 0-94 U/L INTERPRETIVE INFORMATION: Alk-Phosphatase Liver Calc Bone Specific Alkaline Phosphatase (4129190) and 5'-nucleotidase (9097528) may be useful in identifying disorders of bone and liver, respectively. Urinalysis - Inhouse Reviewed date:11/07/2024 02:24:04 PM Interpretation: Performing Lab: Notes/Report: CTA : Neck Reviewed date:01/04/2025 08:12:17 AM Interpretation:bilateral maxillary sinus thickening Performing Lab: Notes/Report: bilateral maxillary sinus thickening P-Vitamin D 25-Hydroxy Reviewed date:12/13/2024 12:26:37 PM Interpretation:Normal Performing Lab: Notes/Report: Test performed by [employer] [address] [place] [address] , [address], [place] [address] Ryley Mathis MD, [employer] CLIA: [id number] Vitamin D 25-Hydroxy 43.2 30.0-100.0 ng/mL Interpretation of Vitamin D 25 OH: < 20 ng/mL - Deficiency 20 - 29 ng/mL - Insufficiency 30 - 100 ng/mL - Sufficiency > 100 ng/mL - Super-therapeutic- toxicity may occur above this level. Clinical correlation required. H-BUN/CREAT Reviewed date:01/03/2025 11:13:47 AM Interpretation:normal Performing Lab: Notes/Report: BUN 9 7-17 mg/dl CREATT 0.70 0.52-1.04 mg/dl GFRAA 106 >60 ML/MIN EGFR 88 >60 ml/min P-Comprehensive Metabolic Pa rashid (CMP) Reviewed date:06/27/2024 10:48:58 AM Interpretation:Alk Phos 125 Performing Lab: Notes/Report: Test performed by [employer] [address] [place] [address] [address], [place] [id number] Ryley Mathis MD, [employer] CLIA: [id number] Sodium 141 135-145 mmol/L Potassium 4.3 3.5-5.3 [...] Interpretation:Normal Performing Lab: Notes/Report: Test performed by [facility], [address] , [address], [place] [address] Ryley Mathis MD, [employer] CLIA: [id number] Cholesterol 186 <200 mg/dL Triglycerides 52 <150 [...] Interpretation:Normal Performing Lab: Notes/Report: Test performed by [facility] [address] , [place] [address] Ryley Mathis MD, [employer] CLIA: [id number] TSH reflex to FT4 0.94 0.43-5.25 mU/L P-Microalbumin/Creatinine, R andom Urine Sample Reviewed date:06/27/2024 10:48:58 AM Interpretation: Performing Lab: Notes/Report: Test performed by [facility] , [address], [place] [address] Ryley Mathis MD, [employer] CLIA: [id number] Albumin/Creatinine Ratio, Urine See Comment 0-30 ug/mg Unable to calculate Urine Albumin/Creatinine Ratio when urine creatinine or urine albumin fall outside established reportable range. Microalbumin, Urine, Random <0.3 Creatinine, Urine 93.3 P-Vitamin D 25-Hydroxy Reviewed date:06/27/2024 10:48:58 AM Interpretation:27.6 Performing Lab: Notes/Report: Test performed by [facility] [address] , [address], [place] [address] Ryley Mathis MD, [employer] CLIA: [id number] Vitamin D 25-Hydroxy 27.6 30.0-100.0 ng/mL Interpretation of Vitamin D 25 OH: < 20 ng/mL - Deficiency 20 - 29 ng/mL - Insufficiency 30 - 100 ng/mL - Sufficiency > 100 ng/mL - Super-therapeutic- toxicity may occur above this level. Clinical correlation required. Mammogram Reviewed date:07/29/2024 01:38:15 PM Interpretation:Negative, annual f/u Performing Lab: Notes/Report: Negative, annual f/u result Negative, annual f/u Reason For Referral No Information Medications Medication SIG (Take, Route, Frequency, Duration) Notes Start Date End Date Status Metaxalone 800 MG 1 tablet Orally Thre e times a day as needed 07/13/2024 Active Escitalopram Oxalate 20 MG 1 tab(s) oral ly once a day; Duration: 90 days Active Irbesartan 150 MG 1 tab(s) orally once a day; Duration: 90 days Active Immunizations Vaccine Route Administration Date Status Comme nts Tetanus Tdap-Adacel (over 7yrs) IM Intramuscular 04/02/2018 Administered Problems Problem Type SNOMED Code ICD Code Onset Dates Problem Status W/U Status Risk Notes Problem Sinusitis (25739663) Sinusitis (J32.9) Active c onfirmed Problem Vitamin D deficiency (69418379) Vitamin D deficiency (E55.9) Active confirmed Problem Essential hypertension (23745021) Essential hypertension (I10) Active confirmed Problem Generalized anxiety disorder (38262467) Generalized anxiety disorder (F41.1) Active confirmed Problem Chronic pain (41565580) Other chronic pain (G89.29) Active confirmed Problem Paresthesia (finding ) (52830927) Paresthesia of skin (R20.2) Active confirmed Problem Excessive thirst (63273113) Polydipsia (R63.1) Active confirmed Problem Pure hypercholesterolemia (165421721) Pure hypercholesterolemia (E78.00) Active confirmed Problem Obesity (103758967) Non morbid o besity (E66.9) Active confirmed Problem Primary hypertension (04587936) Primary hypertension (I10) Active confirmed Vital Signs Heart Rate 74 /min 12/09/2024 Blood pressure diastolic 72 mm Hg 12/09/2024 Height 64 in 12/09/2024 Blood pressure systolic 120 mm Hg 12/09/2024 Weight 179 lbs 12/09/2024 BMI 30.72 kg/m2 12/09/2024 Encounters Encounter Location Date Provider Diagnosis [place] [address] [facility] 36 [facility] [address] [place] [id number] 06/24/2024 Tavo Amarillo Primary hypertension I10 ; Pure hypercholesterolemia E78.00 ; Vitamin D deficiency E55.9 ; Generalized anxiety disorder F41.1 and Breast cancer screening by mammogram Z12.31 [address] [place] [id number] 07/13/2024 Tavo Am[place]illo Muscle spasms of nec k M62.838 and Upper back pain M54.9 [facility] [address] [place], [place] [id number] 11/02/2024 Tavo Amarillo Polydipsia R63.1 ; Anesthesia of skin R20.0 ; Paresthesia of skin R20.2 ; Vitamin D deficiency E55.9 ; Alkaline phosphatase elevation R74.8 and Non morbid obesity E66.9 [facility] [address] [place], [place] [id number] 11/07/2024 Tavo Amarillo Polydipsia R63.1 ; P yuria R82.81 and Microscopic hematuria R31.29 [facility] [address] [place], [place] [id number] 12/09/2024 Tavo [place] Vitamin D deficiency E55.9 ; Essential hypertension I10 ; Generalized anxiety disorder F41.1 ; Non morbid obesity E66.9 and Vertebral artery stenosis, unspecified laterality I65.09 [facility] [address] [place], [place] [id number] 06/27/2024 Tavo [place] [facility] [address] [place], [place] [id number] 11/02/2024 Tavo [place] [facility] [address] [place], [place] [id number] 11/06/2024 Tavo [place] [facility] [address] [place], [place] [id number] 11/09/2024 Tavo [place] [facility] [address] [place], [place] [id number] 01/04/2025 Tavo [place] Assessments Encounter Date Diagnosis (ICD Code) Assessment Notes Treatment Notes Treatment Clinical Notes Section Notes 06/24/2024 Primary hypertension (ICD-10 - I10) 07/13/2024 Muscle spasms of nec k (ICD-10 - M62.838) 07/13/2024 Upper back pain (ICD -10 - M54.9) Home exercise program provided to patient, heating pad to affected areas 2 to 3 times a day, TENS unit OTC recommended 06/24/2024 Pure hypercholesterolemia (ICD-10 - E78.00) 11/02/2024 Anesthesia of skin (ICD-10 - R20.0) 11/02/2024 Polydipsia (ICD-10 - R63.1) 11/07/2024 Pyuria (ICD-10 - R82.81) 12/09/2024 Vitamin D deficiency (ICD-10 - E55.9) 12/09/2024 Essential hypertensi on (ICD-10 - I10) 11/07/2024 Polydipsia (ICD-10 - R63.1) 11/07/2024 Microscopic hematuri a (ICD-10 - R31.29) 12/09/2024 Generalized anxiety disorder (ICD-10 - F41.1) 11/02/2024 Paresthesia of skin (ICD-10 - R20.2) 06/24/2024 Vitamin D deficiency (ICD-10 - E55.9) 06/24/2024 Generalized anxiety disorder (ICD-10 - F41.1) 11/02/2024 Vitamin D deficiency (ICD-10 - E55.9) 12/09/2024 Non morbid obesity (ICD-10 - E66.9) 12/09/2024 Vertebral artery stenosis, unspecified laterality (ICD-10 - I65.09) Xray report from chiropractor reviewed, see report 06/24/2024 Breast cancer screen ing by mammogram (ICD-10 - Z12.31) 11/02/2024 Alkaline phosphatase elevation (ICD-10 - R74.8) 11/02/2024 Non morbid obesity (ICD-10 - E66.9) Plan Of Treatment Next Appt Details Provider Name:Tavo costa, 06/12/2025 09:15:00 AM, [address], [address], [place], [place], [id number], Insurance Providers Payer Name Payer Address Payer Phone Subscriber Number Group Number Insured Name Patient Relationship to Insured Coverage Start Date Coverage End Date [employer]EVIN [employer] [address] [place] [address] [phone] [id number] Yris Alicea Self - patient is the insured Medical (General) History Medical History History ICD Code Hypertension Vitamin D deficiency Anxiety disorder kidney stones, calcium oxilate Surgical History Surgery Date(Month/Year) D&C colposcope laproscopy 2005 fibroid removed from vaginal wall 5 cholecystectomy 03/09/2019 Hospitalization History Reason Date(Month/Year) Kidney Stones- [facility] ER 02/26/2013
--- NOTE | 2025-03-16 09:30 | US_ITS ---
PROCEDURE: US TRANSVAGINAL CLINICAL INDICATION: abnormal uterine bleeding COMPARISON: No exams were available for comparison FINDINGS: Transvaginal sonographic images of the pelvis were obtained. UTERUS: 9.1cm x 5.0cmx 4.3cm anteverted with a combined endometrial thickness of 10.5mm. There is a small amount of fluid in the cervical canal. Within the endometrium there appears to be a polyp measuring 1.8 cm x 0.8 cm X 1.5 cm LEFT OVARY: 2.2cmx1.0cmx1.4cm with a volume of 1.5ml. RIGHT OVARY: 3.3cmx 3.7x2.0cm with a volume of 12.5ml. There is a follicle measuring 2.75 cm x 1.6 cm X 3.0 cm Both ovaries are seen and appear normal. Doppler flow to both ovaries are seen. There is no fluid in the cul-de-sac. IMPRESSION: 1. Anteverted, slightly enlarged uterus. The endometrium measures 10.5 mm. Within the endometrium there appears to be a polyp that measures 1.8 cm in size. 2. Both ovaries are seen and appear normal. The right ovary has a follicle measuring 3 cm. 3. No fluid in the cul-de-sac. Dictated by: Dung Obrien MD 03/16/2025 14:41 Dung Obrien MD in OV 03/16/2025 14:41
[2025-03-16 10:14] LABS: Iron 97 ug/dL (37-170)
[2025-03-16 10:23] LABS: Total Iron Binding Capacity 284 ug/dL (265-497)
[2025-03-16 10:45] LABS: Thyroid Stimulating Hormone 1.12 uIU/mL (0.465-4.68)
[2025-03-17 12:15] LABS: FSH 10.3 mIU/mL (.); LH 15.2 mIU/mL (.)
== END 2025-03-16 23:59 | disposition home or self-care (01) ==
PROVIDERS: PCP Family Medicine; Visit Provider Obstetrics & Gynecology
DX: N84.0 Polyp of corpus uteri (principal); N83.01 Follicular cyst of right ovary
CPT/HCPCS: 36415; 76830; 82670; 83001; 83002; 83540; 83550; 84144; 84443

== ENCOUNTER 2025-06-14 11:01 | Outpatient (CLI) | payer BC, SELFPAY ==
[2025-06-14 13:01] VITALS: BMI 27.9
[2025-06-14 13:34] LABS: Hematocrit 34.9 % (37.0-47.0); Hemoglobin 11.9 g/dL (12.2-16.2); Immature Granulocytes % 0.2 %; Mean Corpuscular HGB Conc 34.1 g/dL (31.8-35.4); Mean Corpuscular Hemoglobin 30.4 pg (27.0-31.2); Mean Corpuscular Volume 89.0 fl (81-99); Nucleated Red Blood Cells % 0 %; Platelet Count 241 K/mm3 (142-424); Red Blood Count 3.92 M/mm3 (4.20-5.40); Red Cell Distribution Width-SD 41.2 fL; White Blood Count 6.3 K/mm3 (4.8-10.8)
[2025-06-14 14:19] LABS: Alanine Aminotransferase 16 U/L (12-78); Albumin Level 3.8 g/dl (3.5-5.0); Albumin/Globulin Ratio 1.3 (1.1-1.8); Alkaline Phosphatase 91 U/L (38-126); Anion Gap 9.9 mEq/L (5-15); Aspartate Amino Transferase 22 U/L (14-36); Bilirubin,Total 0.8 mg/dl (0.2-1.3); Blood Urea Nitrogen 12 mg/dl (7-17); Calcium 9.0 mg/dl (8.4-10.2); Carbon Dioxide 25 mmol/L (22.0-30.0); Chloride 102 mmol/L (98-107); Cholesterol 140 mg/dl (140-200); Creatinine Clearance Estimated 127 mL/min (50-200); Creatinine,Serum 0.60 mg/dl (0.52-1.04); Estimated Glomerular Filt Rate 105 ml/min (>60); GFR (African American) 127 ML/MIN (>60); Globulin 2.9 g/dL (1.3-3.2); Glucose 96 mg/dl (74-100); HDL Cholesterol 57 mg/dl (40-60); Potassium 3.9 mmoL/L (3.5-5.1); Sodium 133 mmol/L (136-145); Total Protein,Serum 6.7 g/dl (6.3-8.2); Triglycerides 61 mg/dl (30-150)
[2025-06-14 14:36] LABS: 25-OH Vitamin D, Total 59.6 ng/mL (30-100)
[2025-06-14 14:50] LABS: Thyroid Stimulating Hormone 2.43 uIU/mL (0.465-4.68)
== END 2025-06-14 23:59 | disposition home or self-care (01) ==
LOC: PREOP 11:02
PROVIDERS: Nurse Anesthetist, Certified Registered; PCP Family Medicine; Visit Provider Obstetrics & Gynecology
DX: Z01.812 Encounter for preprocedural laboratory examination (principal)
CPT/HCPCS: 80053; 80061; 82043; 82306; 82570; 84443; 85025

== ENCOUNTER 2025-06-21 06:34 | Observation (INO) | payer BC, SELFPAY ==
[2025-06-14 09:23] VITALS: BMI 27.9
[2025-06-14 09:24] VITALS: BMI 27.9
--- NOTE | 2025-06-14 11:54 | ECG_ITS ---
APPROVED REPORT Exam: Resting ECG HR:64 bpm ECG Measurements Heart Rate 64 AXES AR 144 P 9 QRSd 81 QRS 19 QT 382 T 29 QTc 391 Conclusion SINUS RHYTHM NORMAL ECG UNCONFIRMED REPORT Electronically signed by : Hang Melton MD 06/15/2025 08:47:50
[2025-06-21] VITALS (21 sets, daily range): BP systolic 86–118; BP diastolic 45–71; PULSE 70–93; RESP 14–20; TEMP 36.3–38; O2SAT 91–100; BMI 27.9
[2025-06-21] MEDS: GABAPENTIN 600MG TABLET 600 MG PO (06:53)
[2025-06-21] MEDS: CELECOXIB 100MG CAPSULE 400 MG PO (06:53)
[2025-06-21 06:56] LABS: Urine Pregnancy, HCG Qual. Negative (Negative)
[2025-06-21] MEDS: LACTATED RINGERS 1000ML 1,000 ML 25 ML IV (07:02)
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
[2025-06-21] MEDS: CLINDAMYCIN PHOSPHATE/D5W 900 MG/50 ML PIGGYBACK 100 MG IV ×2 (08:21→16:01)
[2025-06-21] MEDS: METRONIDAZ/SOD CHL 500 MG/100 ML PIGGYBACK 100 MG IV ×2 (08:22→16:53)
[2025-06-21] MEDS: GENTAMICIN SULFATE IV (08:23)
[2025-06-21] MEDS: SODIUM CHLORIDE 0.9% IV (08:23)
[2025-06-21] MEDS: BUPIVACAINE 0.5% 30ML VIAL 150 MG (08:23)
[2025-06-21] MEDS: 0.9 % SODIUM CHLORIDE 1000ML 1,000 ML IV (08:23)
--- NOTE | 2025-06-21 09:30 | EXP.OP.NOTE ---
Date of procedure: 06/21/25 Pre-op Diagnosis:: 1. Abnormal perimenopausal bleeding 2. Menorrhagia Post-op Diagnosis:: 1. Abnormal perimenopausal bleeding 2. Menorrhagia Procedure performed:: 1. Total Laparoscopic Hysterectomy 2. Biilateral salpingo-oophorectomy Surgeon:: Pita Gómez DO Printer Floor Covering Assistant(s):: Dung Obrien MD MUD ANALYSIS OPERATOR:: Dao Lambert Anesthesia: GETA Estimated blood loss (mL): 50 Clinical Note:: Ms Yris Alicea is a 55 yo P1001 who presents to [facility] for sheduled surgery. She complains of periods every 5-6 months but flow is extremely heavy and lasts 6-8 days. She had to take off of work with her last period in January because it was so heavy. History of x 1. History of abnormal pap smear years ago. Pap smear 03/14/25 was LSIL. Colposcopic biopsy demonstrated CIN1 at 12 o'clock. ECC negative. Hormone labs demonstrate premenopausal state. She admits to hot flashes and night sweats which she is managing without medication. Pelvic ultrasound 03/16/25 demonstrated anteverted, slightly enlarged uterus. The endometrium measures 10.5 mm. Within the endometrium there appears to be a polyp that measures 1.8 cm in size. Both ovaries are seen and appear normal. The right ovary has a follicle measuring 3 cm. No fluid in the cul-de-sac. She wishes to proceed with definitive surgical intervention with hysterectomy, BSO. Surgical history significant for multiple laparoscopies and cholecystectomy. Operative findings:: 1. On bimanual exam, uterus slightly enlarged, normal shape, midposition. No adnexal masses palpated. Cervix appeared grossly normal. 2. On laparoscopic exam, grossly normal appearing bowel, omentum and liver. Uterus appeared slightly enlarged but otherwise grossly normal. Grossly normal appearing fallopian tubes and ovaries. Left ovary with 2 cm follicular cyst. Operative note:: Discussed risks, benefits, alternatives, expectations and possible complications of surgery. All questions addressed and answered. Patient wished to proceed with surgery. Patient was wheeled back to the operating room and placed under general anesthesia without difficulty. She received Clindamycin, Gentamicin and Metronidazole preoperatively. She was placed in the dorsal lithotomy position. She was prepped and draped in normal sterile fashion. Beginning at the vagina, a rodriguez catheter was inserted into the bladder and draining clear urine prior to the start of the procedure. Weighted Auvuard was placed in the vaginal vault. Anterior lip of the cervix was grasped with single tooth tenaculum. Uterus sounded to 9. Shabbir dilators were used to dilate the cervix. Advincula uterine manipulator was inserted into the cervix with the colpotomy cup covering the cervix. Single tooth tenaculum was removed prior to complete placement of colpotomy cup over cervix. Uterine balloon was filled with 10cc of air. Vaginal balloon was filled with 60 cc of air. Weighted Auvard was removed. Attention was then turned to the abdomen. Skin just below the umbilicus was injected with 1% lidocaine with epinephrine. A 1.5 cm infraumbilical incision was made. Veress needle was tested and inserted intrabdominally. Opening pressure was 5 mm Hg that increased to 19 mm Hg. Attempted insertion of verees needle two additional times without good opening pressure. Direct entry with laparoscope within 11mm blunt trocar was performed. The peritoneal cavity was insulflated to 15 mm Hg. Obturator and scope were removed. Laparoscope was inserted into the trocar sleeve. Abdomen and pelvis was viewed in its entirety. Examination of the peritoneal cavity revealed no signs of injury from entry and normal anatomic structures. See findings above. Pictures were taken. Bowel was swept cephalad with blunt probe. LLQ port site was transilluminated and injected with 1% lidocaine with epinephrine. A 1.5 cm incision was made and 11 mm? trocar was inserted intraabdominally under direct laparoscopic visualization. Obturator was removed and sleeve was left in place. Same procedure was performed in RLQ. Left fallopian tube was grasped at fimbriated end. Ligasure Hook was used to clamp, ligate and transect the left IP ligament. The broad ligament was then sequentially clamped, ligated and cut working in the direction of the round ligament and being mindful of the ureter. The left round ligament was ligated and cut. Transection was carried through the Broad ligament. Removing the left ovary and fallopian tube. Same procedure was carried out on the contralateral side. Care was taken to slowly separate the bladder off of the lower uterine segment with sharp and blunt dissection. Once the bladder was appropriately dissected off of the lower uterine segment. Bilateral uterine arteries were clamped, cauterized and cut using the Ligasure. Transection was carried through the cardinal ligament bilaterally. Hemostasis was noted. At the level of the colpotomy cup, the vaginal vault was incised circumferentially with the Ligasure monopolar hook. The uterus and cervix was pulled into the vagina and left in the vagina to hold pneumoperitoneum. Pelvis was irrigated with clear return of fluids. The vaginal vault was closed with the Endostitch V-Lock barbed stitch. Pelvis was irrigated. Intraabdominal pressure was decreased to 5 mm Hg. Hemostasis was noted. Surgicel powder was applied over bilateral pedicles and closed vaginal vault. Bilateral ureters were identified and distal to surgical site. RLQ and LLQ trocars were removed under direct laparoscopic visualization. Pneumoperitoneum was released into the atmosphere. Infraumbilical trocar was removed under direct laparoscopic visualization to ensure no herniation of bowel or omentum. Skin incisions were reapproximated with 3-0 Vicryl. Dermabond was applied over closed skin incisions. Attention was turned to the vagina. Specimen was removed from the vagina and handed off of the sterile field. Catheter was removed from the bladder. Patient was awakened from anesthesia and taken to recovery in stable condition. Condition: stable Disposition: floor Specimens:: 1. Uterus, cervix, bilateral fallopian tubes and ovaries Complications:: None
--- NOTE | 2025-06-21 09:38 | EXP.ANES.I ---
[facility] [place] Anesthesia Record Part I Anesthesia Record I Intake, IV Amount: 1,150 Hydration: Adequate Estimated blood loss (mL): 50 Urine output (mL): 200 Blood Products used (#): none Blood Pressure: 113/66 SaO2: 91 Pulse Rate: 90 Airway Patency: Patent Respiratory Rate: 14 Temperature: 97.8 F Patient is:: Drowsy and Stable Stable to PACU at:: 09:35
[2025-06-21] MEDS: ESTRADIOL VALERATE 20 MG/ML VIAL 30 MG IM (09:56)
[2025-06-21] MEDS: MORPHINE 2MG/ML SYRINGE 2 MG IV (10:03)
[2025-06-21] MEDS: HYDROMORPHONE 2MG/ML SYRINGE 0.5 MG IV (10:08)
[2025-06-21] MEDS: ONDANSETRON 4MG/2ML VIAL 4 MG IV (10:11)
[2025-06-21] MEDS: HYDROMORPHONE 2MG/ML SYRINGE 1 MG IV ×2 (11:36→18:12)
[2025-06-21] MEDS: ACETAMINOPHEN 500MG TAB 1000 MG PO ×2 (13:25→21:56)
[2025-06-21] MEDS: KETOROLAC 30MG/ML VIAL 30 MG IV ×2 (16:02→21:28)
--- NOTE | 2025-06-21 16:23 | EXP.ANES.II ---
[facility] Anesthesia Record Part II Anesthesia Record Part II Discharge Time: 10:05 Destination: Obstetric PACU nurse assessment reviewed?: Yes Patient Condition:: Good Anesthesia Complications:: None Swallowing reflex intact?: Yes Airway Patency: Patent Cyanosis?: No Blood Pressure: 105/65 SaO2: 98 Respiratory Rate: 17 Pulse Rate: 75 Temperature: 98.1 F Mental Status: Alert & Oriented Pain level:: 5 Nausea and/or vomitting:: None Intake, IV Amount: 0 Hydration: Adequate
--- NOTE | 2025-06-21 16:31 | PC.NURSE ---
Report called to DEEPAK Delvalle
--- NOTE | 2025-06-21 16:48 | PC.NURSE ---
arrived to floor from OB by w/c
[2025-06-21] MEDS: LACTATED RINGERS 1000ML 1,000 ML 125 ML IV ×2 (16:52→18:32)
[2025-06-21] MEDS: POLYETHYLENE GLYCOL 3350 17 GM PACKET PO (21:28)
[2025-06-22] MEDS: CLINDAMYCIN PHOSPHATE/D5W 900 MG/50 ML PIGGYBACK 100 MG IV (00:42)
[2025-06-22] MEDS: METRONIDAZ/SOD CHL 500 MG/100 ML PIGGYBACK 100 MG IV ×2 (01:22→08:15)
[2025-06-22] MEDS: ACETAMINOPHEN 500MG TAB 1000 MG PO ×2 (01:26→08:15)
[2025-06-22] MEDS: LACTATED RINGERS 1000ML 1,000 ML 125 ML IV (02:26)
[2025-06-22] MEDS: KETOROLAC 30MG/ML VIAL 30 MG IV (02:33)
[2025-06-22] MEDS: IBUPROFEN 400 MG TABLET 800 MG PO (02:34)
[2025-06-22 04:00] VITALS: BP 84/56; PULSE 65; RESP 16; TEMP 36.4; O2SAT 95; BMI 29.9
[2025-06-22 05:15] VITALS: BP 92/55; PULSE 64
[2025-06-22 05:16] VITALS: BP 92/55; PULSE 64; RESP 16; TEMP 36.4; O2SAT 97
[2025-06-22 07:13] LABS: Hematocrit 30.5 % (37.0-47.0); Hemoglobin 10.5 g/dL (12.2-16.2); Immature Granulocytes % 0.2 %; Mean Corpuscular HGB Conc 34.4 g/dL (31.8-35.4); Mean Corpuscular Hemoglobin 31.5 pg (27.0-31.2); Mean Corpuscular Volume 91.6 fl (81-99); Nucleated Red Blood Cells % 0 %; Platelet Count 190 K/mm3 (142-424); Red Blood Count 3.33 M/mm3 (4.20-5.40); Red Cell Distribution Width-SD 44.9 fL; White Blood Count 8.2 K/mm3 (4.8-10.8)
[2025-06-22 07:35] LABS: Alanine Aminotransferase 18 U/L (12-78); Albumin Level 3.2 g/dl (3.5-5.0); Albumin/Globulin Ratio 1.3 (1.1-1.8); Alkaline Phosphatase 74 U/L (38-126); Anion Gap 9.3 mEq/L (5-15); Aspartate Amino Transferase 21 U/L (14-36); Bilirubin,Total 0.5 mg/dl (0.2-1.3); Blood Urea Nitrogen 7 mg/dl (7-17); Calcium 8.1 mg/dl (8.4-10.2); Carbon Dioxide 25 mmol/L (22.0-30.0); Chloride 102 mmol/L (98-107); Creatinine Clearance Estimated 136 mL/min (50-200); Creatinine,Serum 0.60 mg/dl (0.52-1.04); Estimated Glomerular Filt Rate 105 ml/min (>60); GFR (African American) 127 ML/MIN (>60); Globulin 2.5 g/dL (1.3-3.2); Glucose 98 mg/dl (74-100); Potassium 3.3 mmoL/L (3.5-5.1); Sodium 133 mmol/L (136-145); Total Protein,Serum 5.7 g/dl (6.3-8.2)
[2025-06-22 07:44] VITALS: BP 100/72; PULSE 74; RESP 16; TEMP 36.8; O2SAT 97
[2025-06-22] MEDS: POLYETHYLENE GLYCOL 3350 17 GM PACKET PO (08:15)
--- NOTE | 2025-06-22 10:48 | EXP.DC.SUM ---
General Admission date:: 06/21/25 Discharge date: 06/22/25 HPI HPI HPI: POD # 1 s/p TLH, BSO Doing well overall. She admits to having pain but hasn't received much narcotic pain medication. She reports she has primarily been taking Ibuprofen and Tylenol. She states she feels well enough to go home today. Voiding without difficulty. Passing flatus. Tolerating regular diet. No fever/chills, chest pain or shortness of breath. Ambulating well ad юлия. Hospital Course Hospital Course Hospital Course: Ms Yris Alicea is a 55 yo P1001 who presents to [facility] for sheduled surgery. She complains of periods every 5-6 months but flow is extremely heavy and lasts 6-8 days. She had to take off of work with her last period in January because it was so heavy. History of x 1. History of abnormal pap smear years ago. Pap smear 03/14/25 was LSIL. Colposcopic biopsy demonstrated CIN1 at 12 o'clock. ECC negative. Hormone labs demonstrate premenopausal state. She admits to hot flashes and night sweats which she is managing without medication. Pelvic ultrasound 03/16/25 demonstrated anteverted, slightly enlarged uterus. The endometrium measures 10.5 mm. Within the endometrium there appears to be a polyp that measures 1.8 cm in size. Both ovaries are seen and appear normal. The right ovary has a follicle measuring 3 cm. No fluid in the cul-de-sac. She wishes to proceed with definitive surgical intervention with hysterectomy, BSO. Surgical history significant for multiple laparoscopies and cholecystectomy. She underwent TLH, BSO on 06/21/25. She did well postoperatively. Pain not well controlled but she admits she wasn't given much narcotics. She was primarily taking Ibuprofen and Tylenol. She feels well enough to go home. Discussed scheduling pain medication and setting an alarm. She was voiding without difficulty and passing flatus. Tolerating regular. Abdomen soft with mild appropriate tenderness to palpation postoperatively. Good bowel sounds in all 4 quadrants. Vital signs stable, afebrile. Heart regular rate and rhythm. Lungs clear to auscultation. Ambulating well ad юлия. She was discharged home on POD # 1 with instructions to follow-up in the office in 2 weeks or sooner if needed. Exam Data for Last 24 hours Vital signs and Labs for Last 24 Hours: Temp Pulse Resp BP Pulse Ox O2 Del Method O2 Flow Rate 98.2 F 74 16 100/72 L 97 Room Air 2 06/22/25 07:44 06/22/25 07:44 06/22/25 07:44 06/22/25 07:44 06/22/25 07:44 06/22/25 07:44 06/21/25 16:19 Laboratory Results - last 24 hr 06/21/25 07:00: Blood Type O Positive, Antibody Screen Negative 06/22/25 06:34: WBC 8.2, RBC 3.33 L, Hgb 10.5 L, Hct 30.5 L, MCV 91.6, MCH 31.5 H, MCHC 34.4, RDW 13.3, Plt Count 190, MPV 11.1 H, Neut % (Auto) 78.4, Lymph % (Auto) 14.4, [place] % (Auto) 5.1, Eos % (Auto) 1.2, Baso % (Auto) 0.7, Neut # (Auto) 6.5, Lymph # (Auto) 1.2, [place] # (Auto) 0.4, Eos # (Auto) 0.1, Baso # (Auto) 0.1, Sodium 133 L, Potassium 3.3 L, Chloride 102, Carbon Dioxide 25, Anion Gap 9.3, BUN 7, Creatinine 0.60, Estimated Creat Clear 136, Estimated GFR 105, Est GFR ( Amer) 127, Glucose 98, Calcium 8.1 L, Total Bilirubin 0.5, AST 21, ALT 18, Alkaline Phosphatase 74, Total Protein 5.7 L, Albumin 3.2 L, Globulin 2.5, Albumin/Globulin Ratio 1.3 I & O for Last 24 hours: Intake & Output 06/19/25 06/20/25 06/21/25 06/22/25 23:59 23:59 23:59 23:59 Intake Total 1767.583 / 3765.667 1739.5 / 1377.5 Output Total 700 / 700 0 / 0 Balance 1067.583 / 7617.195 0164.5 / 1377.5 Weight 163 lb 175 lb 8 oz Constitutional Constitutional: no acute distress and cooperative *Routine HEENT Exam Head: Present normocephalic and atraumatic Eye: Absent conjunctivae pink ENT: Present mucous membranes moist *Routine Neck Exam Neck: Present full ROM *Routine Respiratory Exam Respiratory: Present CTA bilaterally and normal respiratory effort *Routine Cardiovascular Exam Cardiovascular: Present RRR *Routine Abdominal Exam Abdominal: Present soft, normoactive bowel sounds and tenderness (appropriate mild tenderness to palpation postoperatively); Absent distended *Routine Rectal Exam Patient deferred: visual exam *Routine Exam Patient deferred: external exam *Routine Extremities Exam Extremities: Present full ROM; Absent edema or calf tenderness *Routine Neurological Exam Neurological: Present alert, moving all extremities and normal speech Routine Psychiatric Exam Psychiatric: Present normal affect and cooperative Results Data Completed and Pending Labs on day of discharge: Labs from last 24 hours 06/22/25 06/21/25 06:34 07:00 WBC 8.2 RBC 3.33 L Hgb 10.5 L Hct 30.5 L MCV 91.6 MCH 31.5 H MCHC 34.4 RDW 13.3 Plt Count 190 MPV 11.1 H Neut % (Auto) 78.4 Lymph % (Auto) 14.4 [place] % (Auto) 5.1 Eos % (Auto) 1.2 Baso % (Auto) 0.7 Neut # (Auto) 6.5 Lymph # (Auto) 1.2 [place] # (Auto) 0.4 Eos # (Auto) 0.1 Baso # (Auto) 0.1 Sodium 133 L Potassium 3.3 L Chloride 102 Carbon Dioxide 25 Anion Gap 9.3 BUN 7 Creatinine 0.60 Estimated Creat Clear 136 Estimated GFR 105 Est GFR ( Amer) 127 Glucose 98 Calcium 8.1 L Total Bilirubin 0.5 AST 21 ALT 18 Alkaline Phosphatase 74 Total Protein 5.7 L Albumin 3.2 L Globulin 2.5 Albumin/Globulin Ratio 1.3 Blood Type O Positive Antibody Screen Negative DS: Diagnosis Discharge Diagnosis (1) S/P laparoscopic hysterectomy: Status: Acute Code(s): Z90.710 - Acquired absence of both cervix and uterus Problem details: TL, BSO 06/21/25 (2) Abnormal perimenopausal bleeding: Status: Acute Code(s): N92.4 - Excessive bleeding in the premenopausal period (3) Menorrhagia: Status: Acute Code(s): N92.0 - Excessive and frequent menstruation with regular cycle Qualifiers: Menorrhagia type: with irregular cycle Qualified Code(s): N92.1 - Excessive and frequent menstruation with irregular cycle Meds Home Medications and Allergies Home Medications ?Medication ?Instructions ?Recorded ?Confirmed ?Type escitalopram oxalate 20 mg tablet 20 mg PO DAILY Anxiety 06/23/21 06/21/25 History irbesartan 150 mg tablet 150 mg PO DAILY 08/12/22 06/21/25 History acetaminophen 500 mg tablet 1,000 mg (2 x 500 mg) PO Q6H #30 06/22/25 Rx tabs ibuprofen 800 mg tablet 800 mg PO Q8H PRN pain #20 tabs 06/22/25 Rx oxycodone 5 mg tablet 5 mg PO Q4HP PRN Moderate Pain 06/22/25 Rx (4-6) #20 tabs polyethylene glycol 3350 17 gram 17 g PO BID #30 ea 06/22/25 Rx oral powder packet (HealthyLax) New Prescriptions to Start Prescriptions: acetaminophen Pita Gómez ibuprofen Pita Gómez oxycodone Pita Gómez polyethylene glycol 3350 [HealthyLax] Pita Gómez Allergies Allergy/AdvReac Type Severity Reaction Status Date / Time acetaminophen (From Lortab) Allergy Other Verified 06/21/25 06:51 hydrocodone (From Lortab) Allergy Other Verified 06/21/25 06:51 Penicillins Allergy Anaphylaxis Verified 06/21/25 06:51 Discharge Plan Disposition Patient Disposition: Home, Self-Care Condition: Good Follow up Plan Follow up with: Pita óGmez DO [Staff Physician, [employer]] - 07/04/25 10:30 am Prescriptions/Medication Reconciliation: New polyethylene glycol 3350 [HealthyLax] 17 gram Powder In Packet 17 g PO BID Qty: 30 0RF oxycodone 5 mg Tablet 5 mg PO Q4HP PRN (Reason: Moderate Pain (4-6)) Qty: 20 0RF acetaminophen 500 mg Tablet 1,000 mg PO Q6H Qty: 30 0RF ibuprofen 800 mg tablet 800 mg PO Q8H PRN (Reason: pain) Qty: 20 0RF Continued irbesartan 150 mg tablet 150 mg PO DAILY Patient Comments: TAKE 1 TABLET BY MOUTH EVERY DAY escitalopram oxalate 20 MG tablet 20 mg PO DAILY Problem Reconciliation Problems Reviewed?: Yes Patient Discharge Instructions ACTIVITY: Limited activity DIET: continue same diet and regular diet Additional Instructions: Additional Instructions: You had a total laparoscopic hysterectomy and bilateral saplingo-oophorectomy. This means that your uterus, cervix, fallopian tubes and ovaries were removed. The top of your vagina is closed with dissolvable sutures. You will follow-up in office for a postop visit at 2 weeks and at 6 weeks. At your 6-week postop appointment you will have a pelvic exam to ensure your cuff is healing well. Discharge: 1. Take 800 mg Ibuprofen every 8 hours as needed for pain. You can also take 1000 mg of Tylenol in between doses, every 6-8 hours and Oxycodone 5 mg, 1 tablet every 4-6 hours or longer as needed. 2. Take Miralax twice daily for the first 3 days and then as needed to prevent constipation Activity: - No lifting more than 10 lbs for 6 weeks. - No driving for 7 days and/or while you are taking narcotic pain medication. - You have three incisions on your abdomen that are closed with stitches and surgical glue. Wound care - You have surgical glue covering your incision. This can come off in 7-10 days. Vaseline will break down the compound and remove the glue - You have stitches under your skin which will dissolve over the next 6 weeks as your body heals - Keep your wound clean and dry, ok to wash with soap and water but pat thoroughly dry Please call the office or return to the ER if you have any of the followin. heavy vaginal bleeding 2. pain that does not respond to your narcotic pain medication 3. dizziness or lightheadedness such that you lose consciousness 4. abnormal discharge from your incisions Questions or concerns: It is my privilege to be your doctor. Please let me know if you have other questions or concerns. Pita Gómez DO [facility] [place], [place] [address] Patient Instructions: DI for Surgical Site Infection, Laparoscopic Hysterectomy Print Language: Tongan Providers Primary Care Provider: Tavo King Provider: Pita Gómez Attending Provider: Pita Gómez
[2025-06-22] MEDS: OXYCODONE 5MG IMMEDIATE RELEASE TABLET 5 MG PO (11:02)
== END 2025-06-22 12:03 | disposition home or self-care (01) ==
LOC: OB 06:34 → 2ND 16:05
PROVIDERS: Admitting Provider Obstetrics & Gynecology; PCP Family Medicine; Visit Provider Obstetrics & Gynecology
PROC: 0UT94ZZ Resection of Uterus, Percutaneous Endoscopic Approach (ICD-10-PCS; CPT 58571; principal; 2025-06-21 07:30)
DX: N92.4 Excessive bleeding in the premenopausal period (principal); Z90.49 Acquired absence of other specified parts of digestive tract; Z88.0 Allergy status to penicillin; Z88.5 Allergy status to narcotic agent; Z88.6 Allergy status to analgesic agent; Z79.899 Other long term (current) drug therapy; Z90.722 Acquired absence of ovaries, bilateral; N92.1 Excessive and frequent menstruation with irregular cycle
CPT/HCPCS: 58571; 36415; 80053; 81025; 85025; 86850; 96361; 96365; 96366; 96374; 96375; 96376; G0378; J0665; J0736; J1100; J1171; J1380; J1580; J1836; J1885; J2003; J2250; J2270; J2405; J2704; J3010; J7030; J7120

== ENCOUNTER 2025-07-22 09:51 | Outpatient (CLI) | payer BC, SELFPAY | END 2025-07-22 23:59 | disposition home or self-care (01) | LOC: LAB.DROPOF 07-24 09:52 | PROVIDERS: PCP Family Medicine; Visit Provider Nurse Practitioner Family | DX: N39.0 Urinary tract infection, site not specified (principal) | CPT/HCPCS: 87086; 87088 ==

== ENCOUNTER 2025-08-07 17:36 | Outpatient (CLI) | payer BC, SELFPAY ==
--- OUTSIDE RECORDS SUMMARY | 2024-06-24 04:45 | XMS_ITS ---
Author Organization [facility] Address [address] [place] [id number] Care Team Providers Care Director [place] [employer] Name Role Phone Tavo King Primary Care Provider hCantelle Rosenbaum [phone] Allergies Allergen (clinical drug ingredient) Drug/Non Drug Allergy documented on EMR Reaction Allergy Type Onset Date Status Substance with penicillin structure and antibacterial mechanism of action (substance) Penicillins Unknown Drug Allergy Active Results Component Value Reference Range Notes P-Comprehensive Metabolic Pa rashid (CMP) Reviewed date:06/27/2024 10:48:58 AM Interpretation:Alk Phos 125 Performing Lab: Notes/Report: Test performed by [facility], [employer] [address] [place] [address] , [address], [place] [address] Ryley Mathis MD, Soil And Plant Scientist CLIA: [id number] Sodium 141 135-145 mmol/L Potassium 4.3 3.5-5.3 mmol/L Chloride 105 97-108 mmol/L CO2 23 22-32 mmol/L Glucose 90 65-99 mg/dL BUN 9 6-20 mg/dL Creatinine 0.74 0.50-1.00 mg/dL Calcium 9.3 8.6-10.4 mg/dL eGFR by Creatinine 97 >59 mL/min/1.73m2 Protein 6.7 6.0-8.3 g/dL Albumin 4.3 3.5-5.3 g/dL Alkaline Phosphatase 125 35-121 IU/L ALT (SGPT) 13 <5-47 IU/L AST (SGOT) 12 <5-40 IU/L Bilirubin, Total 0.6 <0.2-1.2 mg/dL A/G Ratio 1.8 1.1-2.5 P-Lipid Panel Reviewed date:06/27/2024 10:48:58 AM Interpretation:Normal Performing Lab: Notes/Report: Test performed by [facility], [facility] [address] [facility] , [place] [address] Ryley Mathis MD, Soil And Plant Scientist CLIA: [id number] Cholesterol 186 <200 mg/dL Triglycerides 52 <150 mg/dL HDL Cholesterol 76 >39 mg/dL Cholesterol / HDL Ratio 2.45 0.00-4.44 Ratio Non-HDL Cholesterol 110 <130 mg/dL LDL Cholesterol (Calculation) 100 <130 mg/dL LDL Cholesterol Levels* Less than 100 mg/dL Optimal 100 to 129 mg/dL Near Optimal/ Above Optimal 130 to 159 mg/dL Borderline High 160 to 189 mg/dL High 190 mg/dL and above Very High * Categories as recommended by the 2004 ATPIII guidelines LDL/HDL Ratio 1.3 <3.3 Ratio ____ LDL Cholesterol Patient History ____ Test Date: 06/24/2024 LDL Results: 100 Units: mg/dL % Change: - ____ P-TSH reflex to FT4 Reviewed date:06/27/2024 10:48:58 AM Interpretation:Normal Performing Lab: Notes/Report: Test performed by [facility] [address] [place] [address] , [place] [address] Ryley Mathis MD, Soil And Plant Scientist CLIA: [id number] TSH reflex to FT4 0.94 0.43-5.25 mU/L P-Microalbumin/Creatinine, R andom Urine Sample Reviewed date:06/27/2024 10:48:58 AM Interpretation: Performing Lab: Notes/Report: Test performed by [facility] [address] [place] [address] , [place] [address] Ryley Mathis MD, Soil And Plant Scientist CLIA: [id number] Albumin/Creatinine Ratio, Urine See Comment 0-30 ug/mg Unable to calculate Urine Albumin/Creatinine Ratio when urine creatinine or urine albumin fall outside established reportable range. Microalbumin, Urine, Random <0.3 Creatinine, Urine 93.3 P-Vitamin D 25-Hydroxy Reviewed date:06/27/2024 10:48:58 AM Interpretation:27.6 Performing Lab: Notes/Report: Test performed by [facility] [address] [place] [address] , [place] [address] Ryley Mathis MD, Soil And Plant Scientist CLIA: [id number] Vitamin D 25-Hydroxy 27.6 30.0-100.0 ng/mL Interpretation of Vitamin D 25 OH: < 20 ng/mL - Deficiency 20 - 29 ng/mL - Insufficiency 30 - 100 ng/mL - Sufficiency > 100 ng/mL - Super-therapeutic- toxicity may occur above this level. Clinical correlation required. Mammogram Reviewed date:07/29/2024 01:38:15 PM Interpretation:Negative, annual f/u Performing Lab: Notes/Report: Negative, annual f/u result Negative, annual f/u REASON FOR VISIT 6 months Medications Medication SIG (Take, Route, Frequency, Duration) Notes Start Date End Date Status Escitalopram Oxalate 20 MG 1 tab(s) oral ly once a day; Duration: 90 days Active Irbesartan 150 MG 1 tab(s) orally once a day; Duration: 90 days Active Vital Signs Blood pressure systolic 114 mm Hg 06/24/20 24 Blood pressure diastolic 76 mm Hg 024 Heart Rate 72 /min 06/24/2024 Height 64 in 06/24/2024 Weight 175.8 lbs 06/24/2024 BMI 30.17 kg/m2 06/24/2024 Encounters Encounter Location Date Provider Diagnosis [facility] [address] [facility] [address] [facility] [address] [place] [id number] 06/24/2024 Tavo King Primary hypertension I10 ; Pure hypercholesterolemia E78.00 ; Vitamin D deficiency E55.9 ; Generalized anxiety disorder F41.1 and Breast cancer screening by mammogram Z12.31 Assessments Encounter Date Diagnosis (ICD Code) Assessment Notes Treatment Notes Treatment Clinical Notes Section Notes 06/24/2024 Primary hypertension (ICD-10 - I10) 06/24/2024 Pure hypercholesterolemia (ICD-10 - E78.00) 06/24/2024 Vitamin D deficiency (ICD-10 - E55.9) 06/24/2024 Generalized anxiety disorder (ICD-10 - F41.1) 06/24/2024 Breast cancer screen ing by mammogram (ICD-10 - Z12.31) Plan Of Treatment Medication Medication Name Sig Start Date Stop Date Notes Escitalopram Oxalate 20 MG 1 tab(s) oral ly once a day; Duration: 90 days Irbesartan 150 MG 1 tab(s) orally once a day; Duration: 90 days Next Appt Details Follow Up: 6 Months, Reason: Provider Name:Tavo costa, 08/07/2025 05:30:00 PM, [address] [facility] [address] [facility], [address], [place], [id number], Provider Name:Tavo costa, 12/11/2025 09:00:00 AM, [address] [facility] [address] [facility], [address], [place], [id number], Progress Notes * Basil JOSE:1970 (55 yo F)Acc No.[id number]:06/24/2024 Progress Notes Patient: Yris HERNANDEZ Provider: Roque King M.D. :1970 A ge:54 Y S ex:Female Date:06/24/2024 Address:[address] [place] [id number] Subjective: * Chief Complaints: * 1 . 6 months. * HPI: C ardiology: 54 year old female presents with c/o Blood Pressure Elevated?Pt here for 6 mo f/u on hypertension, states she is doing well and does not have any concerns . c/o Hyperlipidemia P t is fasting today. * ROS: D ERMATOLOGY: no R yasmin. n o H dagoberto. G ASTROENTEROLOGY: no N ausea. n o V omiting. U ROLOGY: no D ifficulty urinating. n o B lood in urine. * Medical History: H ypertension, Vitamin D deficiency, Anxiety disorder, Kidney stones, calcium oxilate. * Surgical History: D &C , colposcope , laproscopy 2005, fibroid removed from vaginal wall 01/2015, cholecystectomy 03/09/2019. * Hospitalization/Major Diagno stic Procedure: Aman tam Stones- [facility] ER 02/26/13. * Family History: F ather: alive. M other: alive. P aternal Grand Father: alive. P aternal Grand Mother: alive. M aternal Grand Father: alive. M aternal Grand Mother: alive. 1 sister(s) . 1 daughter(s) . . * Social History: C URRENT TOBACCO USE S moking Status: Patient does NOT smoke. C affeine: yes, frequency:. Home smoke detector use: yes. Marital Status: Single. Past smoking status: no. * Medications: T aking Escitalopram Oxalate 20 MG Tablet 1 tab(s) orally once a day , Taking Irbesartan 150 MG Tablet 1 tab(s) orally once a day , Discontinued Vitamin D (Ergocalciferol) 1.25 MG (24132 UT) Capsule 1 capsule Orally once weekly , Medication List reviewed and reconciled with the patient * Allergies: P enicillins. Objective: * Vitals: W t:175.8, Temp:97.8, BP:114/76, HR:72, Nurse:silvia, Ht: 64, BMI:30.17. * Examination: C ardiology: General Appearance: p leasant, NAD. H EENT: u nremarkable. H eart sounds: R RR, normal S1, S2. L ungs: c lear, no rales or wheezes.?Extremities: n o leg edema. P eripheral pulses: 2 plus bilateral. ? Assessment: * Assessment: 1. P rimary hypertension - I10 (Primary) 2 . P ure hypercholesterolemia - E78.00 3 . V itamin D deficiency - E55.9 4 . G eneralized anxiety disorder - F41.1 5 . B reast cancer screening by mammogram - Z1231 ? Plan: * Treatment: Value Reference Range A /G Ratio 1.8 1.1-2.5 - * A lbumin 4.3 3.5-5.3 - g/dL * A lkaline Phosphatase 125 H 35-121 - IU/L * A LT (SGPT) 13 <5-47 - IU/L * A ST (SGOT) 12 <5-40 - IU/L * B ilirubin, Total 0.6 <0.2-1.2 - mg/dL * B UN 9 6-20 - mg/dL * C alcium 9.3 8.6-10.4 - mg/dL * C hloride 105 97-108 - mmol/L * C O2 23 22-32 - mmol/L * C reatinine 0.74 0.50-1.00 - mg/dL * G lucose 90 65-99 - mg/dL * P otassium 4.3 3.5-5.3 - mmol/L * S odium 141 135-145 - mmol/L * P rotein 6.7 6.0-8.3 - g/dL * e GFR by Creatinine 97 >59 - mL/min/1.73m2 * Kristine Mejia 06/27/2024 10: 48:46 AM >See phone encounter ?LAB: P-Microalbumin/Creatinine, Random Urine Sample (Collection Date & Time - 06/24/2024 09:05 AM)* Value Reference Range A lbumin/Creatinine Ratio, Urine See Comment L 0-30 - ug /mg * C reatinine, Urine 93.3 - mg/dL * M icroalbumin, Urine, Random <0.3 - mg/dL * Kristine Mejia 06/27/2024 10: 48:46 AM >See phone encounter 2.?Pure hypercholesterolemia?LAB: P-Comprehensive Metabolic Panel (CMP) (Collection Date & Time - 06/24/2024 09:05 AM)?Alk Phos 125* Value Reference Range A /G Ratio 1.8 1.1-2.5 - * A lbumin 4.3 3.5-5.3 - g/dL * A lkaline Phosphatase 125 H 35-121 - IU/L * A LT (SGPT) 13 <5-47 - IU/L * A ST (SGOT) 12 <5-40 - IU/L * B ilirubin, Total 0.6 <0.2-1.2 - mg/dL * B UN 9 6-20 - mg/dL * C alcium 9.3 8.6-10.4 - mg/dL * C hloride 105 97-108 - mmol/L * C O2 23 22-32 - mmol/L * C reatinine 0.74 0.50-1.00 - mg/dL * G lucose 90 65-99 - mg/dL * P otassium 4.3 3.5-5.3 - mmol/L * S odium 141 135-145 - mmol/L * P rotein 6.7 6.0-8.3 - g/dL * e GFR by Creatinine 97 >59 - mL/min/1.73m2 * Kristine Mejia 06/27/2024 10: 48:46 AM >See phone encounter ?LAB: P-Lipid Panel (Collection Date & Time - 06/24/2024 09:05 AM)?Normal* Value Reference Range C holesterol / HDL Ratio 2.45 0.00-4.44 - Ratio * C holesterol 186 <200 - mg/dL * H DL Cholesterol 76 >39 - mg/dL * L DL Cholesterol (Calculation) 100 <130 - mg/d L * L DL/HDL Ratio 1.3 <3.3 - Ratio * N on-HDL Cholesterol 110 <130 - mg/dL * T riglycerides 52 <150 - mg/dL * Kristine Mejia 06/27/2024 10: 48:46 AM >See phone encounter ?LAB: P-TSH reflex to FT4 (Collection Date & Time - 06/24/2024 09:05 AM)? Normal* Value Reference Range T SH reflex to FT4 0.94 0.43-5.25 - mU/L * Kristine Mejia 06/27/2024 10: 48:46 AM >See phone encounter 3.?Vitamin D deficiency?LAB: P-Vitamin D 25-Hydroxy (Collection Date & Time - 06/24/2024 09:05 AM)? 27.6* Value Reference Range V itamin D 25-Hydroxy 27.6 L 30.0-100.0 - ng/mL * Kristine Mejia 06/27/2024 10: 48:46 AM >See phone encounter 4.?Generalized anxiety disorder? Refill Escitalopram Oxalate Tablet, 20 MG, 1 tab(s), orally, once a day, 90 days, 90, Refills 1. ?5.?Breast cancer screening by mammogram?Imaging: Mammogram (Performed Date - 07/26/2024)?Negative, annual f/u* Value Reference Range r esult Negative, annual f/u * Jesica Boucher 06/24/2024 10:0 7:54 AM > faxed to [facility] Zoraida Mtz 07/29/2024 1:35:27 PM > LM for return callWellsMary 07/29/2024 1:38:03 PM > informed the patient * Follow Up: 6 Months * Images: Billing Information: * Visit Code: 34025 Office Visit, Est Pt., Level 4. * Procedure Codes: * Electronic signature of Margarita King MD on 08/07/2025 at 05:40 PM EST Sign off status: Pending * Provider: Roque King M.D. Date: 08/24/2023 Generated for Mariama oakley/Kat/eTransmitting on: 05:40 PM EST History and Physical Notes * HPI (History of Present Illness) Category Sub-Category Detail Notes Category Not es Cardiology Blood Pressure Elevated Pt here for 6 mo f/u on hypertension, states she is doing well and does not have any concerns Hyperlipidemia Pt is fasting today Examination Category Sub-Category Detail Notes Category Not es Cardiology Lungs: clear, no rales or wheezes HEENT: unremarkable Heart sounds: RRR, normal S1, S2 Extremities: no leg edema Peripheral pulses: 2 plus bilateral General Appearance: pleasant, NAD
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
--- OUTSIDE RECORDS SUMMARY | 2024-11-07 08:45 | XMS_ITS ---
Author Organization [facility] Address [facility] [facility] [address] [place] [id number] Care Team Providers Care Septic Pump Truck Driver Name Role Phone Tavo King Primary Care Provider [phone] Chantelle Rosenbaum [phone] Results Component Value Reference Range Notes Urinalysis - Inhouse Reviewed date:11/09/2024 05:33:21 PM Interpretation:1+ leuk, trace blood Performing Lab: Notes/Report: 1+ leuk, trace blood Color/Clarity yellow/clear Leuk 1+ Nitrite Neg Urobili 3.2 Protein Neg pH 6.5 Blood Trace-Intact Sp. Gr. <=1.005 Ketone Neg Bili Neg Gluc Neg TEN-UTI panel Reviewed date:11/09/2024 02:59:59 PM Interpretation:Abnormal Performing Lab: Notes/Report: Abnormal TEN-UTI panel Reviewed date:11/09/2024 02:59:59 PM Interpretation:Abnormal Performing Lab: Notes/Report: Abnormal REASON FOR VISIT UA only Medications Medication SIG (Take, Route, Frequency, Duration) Notes Start Date End Date Status Metaxalone 800 MG 1 tablet Orally Thre e times a day as needed 07/13/2024 Active Escitalopram Oxalate 20 MG 1 tab(s) oral ly once a day; Duration: 90 days Active Irbesartan 150 MG 1 tab(s) orally once a day; Duration: 90 days Active Encounters Encounter Location Date Provider Diagnosis [facility] [address] [place] [id number] 11/07/2024 [place] Polydipsia R63.1 ; Pyuria R82.81 and Microscopic hematuria R31.29 Assessments Encounter Date Diagnosis (ICD Code) Assessment Notes Treatment Notes Treatment Clinical Notes Section Notes 11/07/2024 Polydipsia (ICD-10 - R63.1) 11/07/2024 Pyuria (ICD-10 - R82.81) 11/07/2024 Microscopic hematuria (ICD-10 - R31.29) Plan Of Treatment Next Appt Details Provider Name:Tavo Redman Ronel costa, 08/07/2025 05:30:00 PM, [facility] 36 [facility], [address], [place], [id number], Provider Name:Tavo Redman Ronel costa, 12/11/2025 09:00:00 AM, [address] 36 [facility], [address], [place], [id number], Progress Notes * Hayden JOSEB:1970 (55 yo F)Acc No.[id number]:11/07/2024 Patient: Yris HERNANDEZ Provider: Roque King M.D. :1970 A ge:54 Y S ex:Female Date:11/07/2024 Address:[address] [place], [place] [id number] Subjective: * Chief Complaints: * 1 . UA only. * Medical History: * Medications: T aking Irbesartan 150 MG Tablet 1 tab(s) orally once a day , Taking Escitalopram Oxalate 20 MG Tablet 1 tab(s) orally once a day , Taking Metaxalone 800 MG Tablet 1 tablet Orally Three times a day as needed , Medication List reviewed and reconciled with the patient Objective: * Vitals: Assessment: * Assessment: 1. P olydipsia - R63.1 (Primary) 2 . P yuria - R82.81 3 .?Microscopic hematuria - R31.29 Plan: * Treatment: Value Reference Range C olor/Clarity yellow/clear * L euk 1+ * N itrite Neg * U robili 3.2 * P rotein Neg * p H 6.5 * B lood Trace-Intact * S p. Gr. <=1.005 * K etone Neg * B shaye Neg * G susan Neg * Zoraida Pastor 11/07/2024 02:01: 56 PM >Tavo King 11/09/2024 5:33:01 PM > Spoke to patient. 2.?Pyuria?LAB: TEN-UTI panel (Collection Date & Time - 11/07/2024)?Abnormal* Tavo King 11/09/2024 2: 59:49 PM > Spoke to patient. 3.?Microscopic hematuria?LAB: TEN-UTI panel (Collection Date & Time - 11/07/2024)?Abnormal* Tavo King 11/09/2024 2: 59:49 PM > Spoke to patient. * Images: Billing Information: * Visit Code: * Procedure Codes: * Electronic signature of Margarita King MD on 08/07/2025 at 05:39 PM EST Sign off status: Pending * Provider: Roque King M.D. Date: 0 11/07/2024 Generated for Mariama oakley/Kat/Stephansmitting on: 1 05:39 PM EST
--- OUTSIDE RECORDS SUMMARY | 2024-12-09 05:45 | XMS_ITS ---
Author [facility] 12[facility] 36 [facility] [address] [place] [id number] Care Team Providers Care Utility Tractor Operator Name Role Phone Tavo King Primary Care Provider Chantelle Rosenbaum [phone] Allergies Allergen (clinical drug ingredient) Drug/Non Drug Allergy documented on EMR Reaction Allergy Type Onset Date Status Substance with penicillin structure and antibacterial mechanism of action (substance) Penicillins Unknown Drug Allergy Active Results Component Value Reference Range Notes P-Vitamin D 25-Hydroxy Reviewed date:12/13/2024 12:26:37 PM Interpretation:Normal Performing Lab: Notes/Report: Test performed by [facility], [employer] [address] [place] [address] , [address], [place] [address] Ryley Mathis MD, Plug Shaper Hand CLIA: [id number] Vitamin D 25-Hydroxy 43.2 30.0-100.0 ng/mL Interpretation of Vitamin D 25 OH: < 20 ng/mL - Deficiency 20 - 29 ng/mL - Insufficiency 30 - 100 ng/mL - Sufficiency > 100 ng/mL - Super-therapeutic- toxicity may occur above this level. Clinical correlation required. CTA : Neck Reviewed date:01/04/2025 08:12:17 AM Interpretation:bilateral maxillary sinus thickening Performing Lab: Notes/Report: bilateral maxillary sinus thickening REASON FOR VISIT 6 months Medications Medication SIG (Take, Route, Frequency, Duration) Notes Start Date End Date Status Metaxalone 800 MG 1 tablet Orally Thre e times a day as needed 07/13/2024 Active Escitalopram Oxalate 20 MG 1 tab(s) oral ly once a day; Duration: 90 days Active Irbesartan 150 MG 1 tab(s) orally once a day; Duration: 90 days Active Problems Problem Type SNOMED Code ICD Code Onset Dates Problem Status W/U Status Risk Notes Problem Essential hypertension (80695199) Essential hypertension (I10) Active confirmed Vital Signs Blood pressure systolic 120 mm Hg 12/10/19 25 Blood pressure diastolic 72 mm Hg 025 Heart Rate 74 /min 12/09/2024 Height 64 in 12/09/2024 Weight 179 lbs 12/09/2024 BMI 30.72 kg/m2 12/09/2024 Encounters Encounter Location Date Provider Diagnosis [place] [facility] 36 [facility] [address] [place] [id number] 12/09/2024 Tavo King Vitamin D deficiency E55.9 ; Essential hypertension I10 ; Generalized anxiety disorder F41.1 ; Non morbid obesity E66.9 and Vertebral artery stenosis, unspecified laterality I65.09 Assessments Encounter Date Diagnosis (ICD Code) Assessment Notes Treatment Notes Treatment Clinical Notes Section Notes 12/09/2024 Vitamin D deficiency (ICD-10 - E55.9) 12/09/2024 Essential hypertension (ICD-10 - I10) 12/09/2024 Generalized anxiety disorder (ICD-10 - F41.1) 12/09/2024 Non morbid obesity (ICD-10 - E66.9) 12/09/2024 Vertebral artery stenosis, unspecified laterality (ICD-10 - I65.09) Xray report from chiropractor reviewed, see report Plan Of Treatment Medication Medication Name Sig Start Date Stop Date Notes Escitalopram Oxalate 20 MG 1 tab(s) oral ly once a day; Duration: 90 days Irbesartan 150 MG 1 tab(s) orally once a day; Duration: 90 days Treatment Notes Assessment Notes Vertebral artery stenosis, u nspecified laterality Xray report from chiropractor reviewed, see report Next Appt Details Follow Up: 6 Months, Reason: Provider Name:Tavo costa, 08/07/2025 05:30:00 PM, [address], [place], [id number], Provider Name:Tavo costa, 12/11/2025 09:00:00 AM, [address], [place], [phone], Progress Notes * Hayden JOSEB:1970 (55 yo F)Acc No.[id number]:12/09/2024 Progress Notes Patient: Yris HERNANDEZ Provider: Roque King M.D. :1970 A ge:54 Y S ex:Female Date:12/09/2024 Address:[address] [place] [address] , [id number] Subjective: * Chief Complaints: * 1 . 6 months. * HPI: C ardiology: 54 year old female presents with c/o Blood Pressure Elevated?Pt here for 6 mo f/u on hypertension, states she is doing well and does not have any concerns.? c/o Hyperlipidemia P t is fasting today. * ROS: C ONSTITUTIONAL: Positive for S aw a local chiropracter due to chronic neck pain and was told she had a lot of calcifications in an artery, needs further testing. ? D ERMATOLOGY: no R yasmin. n o [...] cholecystectomy 03/09/2019. * Hospitalization/Major Diagno stic Procedure: K anel Stones- [facility] ER 02/26/2013. * Family History: F ather: [...] Allergies: P enicillins. Objective: * Vitals: W t: 179, Temp: 97.9, BP: 120/72, HR: 74, Nurse: silvia, Ht: 64, BMI:30.72. * Examination: C ardiology: General Appearance: p leasant, NAD. C arotid upstroke:? no bruits. H eart sounds: R RR, normal S1, S2. L ungs: c lear, no rales or wheezes. E xtremities: n o leg edema. P eripheral pulses: 2 plus bilateral. ? Assessment: * Assessment: 1. E ssential hypertension - I10 (Primary) 2 . V itamin D deficiency - E55.9 3 . G eneralized anxiety disorder - F41.1 4 . N on morbid obesity - E66.9 5 . V ertebral artery stenosis, unspecified laterality - I65.09? Plan: * Treatment: 2. V itamin D deficiency L AB: P-Vitamin D 25-Hydroxy (Collection Date & Time - 12/09/2024 10:18 AM) N ormal Value Reference Range V itamin D 25-Hydroxy 43.2 30.0-100.0 - ng/mL * Zoraida Pastor 12/13/2024 12:22:4 3 PM > LM for pt to return Zoraida Frank 12/13/2024 12:26:25 PM > Pt informed 3.?Generalized anxiety disorder? Refill Escitalopram Oxalate Tablet, 20 MG, 1 tab(s), orally, once a day, 90 days, 90, Refills 1. ?4.?Vertebral artery stenosis, unspecified laterality?Imaging: CTA : Neck (Performed Date - 01/03/2025)?bilateral maxillary sinus thickening* Jesica Boucher 12/12/2024 08:58 :32 AM > called [place]; was told to submit via [email or web address] but there is no option for this insurance typeTaylorJesica 12/19/2024 10:44:46 AM > spoke with [email or web address]; case has been approved but she did not have a validity date; case#[id number]; faxed to [facility] Rosy Madrigal 01/04/2025 08:12:13 AM > See phone encounter Notes: Xray report from chiropractor reviewed, see report?? * Procedure Codes: 3 074F SYST BP LT 130 MM HG, 3078F DIAST BP < 80 MM HG * Follow Up: 6 Months * Images: Billing Information: * Visit Code: 59682 Office Visit, Est Pt., Level 4. * Procedure Codes: 3074F SYST BP LT 130 MM HG. 3078F DIAST BP < 80 MM HG. * Electronic signature of Margarita King MD on 08/07/2025 at 05:41 PM EST Sign off status: Pending * Provider: Roque King M.D. Date: 0 12/09/2024 Generated for Mariama oakley/Kat/Stephansmitting on: 1 05:41 PM EST History and Physical Notes * HPI (History of Present Illness) Category Sub-Category Detail Notes Category Not es Cardiology Blood Pressure Elevated Pt here for 6 mo f/u on hypertension, states she is doing well and does not have any concerns Hyperlipidemia Pt is fasting today Examination Category Sub-Category Detail Notes Category Not es Cardiology Lungs: clear, no rales or wheezes Heart sounds: RRR, normal S1, S2 Carotid upstroke: no bruits Extremities: no leg edema Peripheral pulses: 2 plus bilateral General Appearance: pleasant, NAD
--- OUTSIDE RECORDS SUMMARY | 2025-06-12 04:15 | XMS_ITS ---
[facility] Address [address] [facility] [address] [place] [phone] Care Team Providers Care Support Clerk Name Role Phone Tavo King Primary Care Provider Chantelle Rosenbaum [phone] Allergies Allergen (clinical drug ingredient) Drug/Non Drug Allergy documented on EMR Reaction Allergy Type Onset Date Status Substance with penicillin structure and antibacterial mechanism of action (substance) Penicillins Unknown Drug Allergy Active Results Component Value Reference Range Notes H-TSH Reviewed date:06/14/2025 05:11:53 PM Interpretation:Normal Performing Lab: Notes/Report: TSH 2.43 0.465-4.68 uIU/mL H-VITAMIN D Reviewed date:06/14/2025 05:11:53 PM Interpretation:Normal Performing Lab: Notes/Report: TVITD 59.6 30-100 ng/mL Deficient <20 ng/mL Insufficient 20-30 ng/mL Sufficient 30-100 ng/mL Potential Toxicity >100 ng/mL H-Microalbumine/Creatinine Reviewed date:06/14/2025 05:11:53 PM Interpretation:Micro/Alb 36.100 Performing Lab: Notes/Report: UCREAT 162 Not Estab. mg/dL Random urine reference range not established. 24 hour urine samples recommended. MICROALB 36.100 0-16.7 mg/L MALBCREAT 22.2 Units: mg/g creat Normal: 0 - 29 Moderately Increased: 30 - 300 Severely Increased: >300 H-Lipid Panel Reviewed date:06/14/2025 05:11:53 PM Interpretation:LDL 73.43 Performing Lab: Notes/Report: Patient Fasting? Y TRIG 61 30-150 mg/dl CHOL 140 140-200 mg/dl DLDL 73.43 100-129 mg/dL VLDL 12 0-40 mg/dL HDL 57 40-60 mg/dl CHLHDL 2.5 1-3.5 H-CMP Reviewed date:06/14/2025 05:11:53 PM Interpretation:Na 133 Performing Lab: Notes/Report: NA 133 136-145 mmol/L K 3.9 3.5-5.1 mmoL/L CL 102 98-107 mmol/L CO2 25 22.0-30.0 mmol/L GAP 9.9 5-15 mEq/L BUN 12 7-17 mg/dl CREATT 0.60 0.52-1.04 mg/dl CRCLE 127 50-200 mL/min GFRAA 127 >60 ML/MIN EGFR 105 >60 ml/min GLU 96 74-100 mg/dl CA 9.0 8.4-10.2 mg/dl BILIT 0.8 0.2-1.3 mg/dl AST 22 14-36 U/L ALT 16 12-78 U/L TP 6.7 6.3-8.2 g/dl ALB 3.8 3.5-5.0 g/dl GLOB 2.9 1.3-3.2 g/dL AGRATIO 1.3 1.1-1.8 ALP 91 38-126 U/L REASON FOR VISIT 6 Month Check Up Medications Medication SIG (Take, Route, Frequency, Duration) Notes Start Date End Date Status Escitalopram Oxalate 20 MG 1 tab(s) oral ly once a day; Duration: 90 days Active Irbesartan 150 MG 1 tab(s) orally once a day; Duration: 90 days Active Metaxalone 800 MG 1 tablet Orally Thre e times a day as needed 07/13/2024 Active Vital Signs Blood pressure systolic 122 mm Hg 06/12/20 25 Blood pressure diastolic 68 mm Hg 025 Heart Rate 76 /min 06/12/2025 Height 64 in 06/12/2025 Weight 164 lbs 06/12/2025 BMI 28.15 kg/m2 06/12/2025 Encounters Encounter Location Date Provider Diagnosis [facility] [address] [facility] [address] [place], [place] [id number] 06/12/2025 Tavo King Essential hypertensi on I10 ; Pure hypercholesterolemia E78.00 ; Vitamin D deficiency E55.9 and Generalized anxiety disorder F41.1 Assessments Encounter Date Diagnosis (ICD Code) Assessment Notes Treatment Notes Treatment Clinical Notes Section Notes 06/12/2025 Essential hypertensi on (ICD-10 - I10) 06/12/2025 Pure hypercholesterolemia (ICD-10 - E78.00) 06/12/2025 Vitamin D deficiency (ICD-10 - E55.9) 06/12/2025 Generalized anxiety disorder (ICD-10 - F41.1) Plan Of Treatment Medication Medication Name Sig Start Date Stop Date Notes Escitalopram Oxalate 20 MG 1 tab(s) oral ly once a day; Duration: 90 days Irbesartan 150 MG 1 tab(s) orally once a day; Duration: 90 days Next Appt Details Follow Up: 6 Months, Reason: Provider Name:Tavo costa, 08/07/2025 05:30:00 PM, [address] [place] [address], [address], [place], [place], [phone], Provider Name:Tavo costa, 12/11/2025 09:00:00 AM, [address] [place] [address], [address], [place], [phone], Progress Notes * Hayden JOSEB:1970 (55 yo F)Acc No.[id number]:06/12/2025 Progress Notes Patient: Yris HERNANDEZ Provider: Roque King M.D. :1970 A ge:55 Y S ex:Female Date:06/12/2025 Address:[address] [place] [address] , [id number] Subjective: * Chief Complaints: * 1 . 6 Month Check Up. * HPI: C ardiology: 55 year old female presents with c/o Blood Pressure Elevated?Pt states she is doing well and has no concerns at this time. Pt states she does need refills on medications . c/o Hyperlipidemia P t is not fasting today. * Medical History: H ypertension, Vitamin D deficiency, Anxiety disorder, Kidney stones, calcium oxilate. * Surgical History: D &C , colposcope , laproscopy 2005, fibroid removed from vaginal wall 01/2015, cholecystectomy 03/09/2019. * Hospitalization/Major Diagno stic Procedure: Aman tam Stones- [facility] ER 02/26/2013. * Family History: F ather: alive. M other: alive. P aternal Grand Father: alive. P aternal Grand Mother: alive. M aternal Grand Father: alive. M aternal Grand Mother: alive. 1 sister(s) . 1 daughter(s) . . * Social History: C URRENT TOBACCO USE: No S moking Status: Patient does NOT smoke. C affeine: yes, frequency:. Home smoke detector use: yes. Marital Status: Single. Past smoking status: no. * Medications: T aking Metaxalone 800 MG Tablet 1 tablet Orally Three times a day as needed , Taking Escitalopram Oxalate 20 MG Tablet 1 tab(s) orally once a day , Taking Irbesartan 150 MG Tablet 1 tab(s) orally once a day , Medication List reviewed and reconciled with the patient * Allergies: P enicillins. Objective: * Vitals: W t: 164, Temp: 98.1, BP: 122/68, HR: 76, Nurse: KADE, Ht: 64, BMI:28.15. * Examination: C ardiology: General Appearance: p leasant, NAD. C arotid upstroke:? no bruits. H eart sounds: R RR, normal S1, S2. L ungs: c lear, no rales or wheezes. E xtremities: n o leg edema. P eripheral pulses: 2 plus bilateral. ? Assessment: * Assessment: 1. E ssential hypertension - I10 (Primary) 2 . P ure hypercholesterolemia - E78.00 3 . V itamin D deficiency - E55.9 4 . G eneralized anxiety disorder - F41.1 Plan: * Treatment: Value Reference Range M ICROALB 36.100 H 0-16.7 - mg/L * U CREAT 162 Not Estab. - mg/dL * M ALBCREAT 22.2 - * Kristine Mejia 06/14/2025 05: 11:44 PM EST > See phone encounter ?LAB: H-CMP (Collection Date & Time - 06/14/2025 12:15 PM)?Na 133* Value Reference Range N A 133 L 136-145 - mmol/L * K 3.9 3.5-5.1 - mmoL/L * C L 102 98-107 - mmol/L * C O2 25 22.0-30.0 - mmol/L * G AP 9.9 5-15 - mEq/L * B UN 12 7-17 - mg/dl * C REATT 0.60 0.52-1.04 - mg/dl * G FRAA 127 >60 - ML/MIN * E GFR 105 >60 - ml/min * G ONI 96 74-100 - mg/dl * C A 9.0 8.4-10.2 - mg/dl * B ILIT 0.8 0.2-1.3 - mg/dl * A ST 22 14-36 - U/L * A LT 16 12-78 - U/L * T P 6.7 6.3-8.2 - g/dl * A LB 3.8 3.5-5.0 - g/dl * G LOB 2.9 1.3-3.2 - g/dL * A GRATIO 1.3 1.1-1.8 - * A LP 91 38-126 - U/L * C RCLE 127 50-200 - mL/min * Kristine Mejia 06/14/2025 05: 11:44 PM EST > See phone encounter 2.?Pure hypercholesterolemia?LAB: H-TSH (Collection Date & Time - 06/14/2025 12:15 PM)?Normal* Value Reference Range T SH 2.43 0.465-4.68 - uIU/mL * Kristine Mejia 06/14/2025 05: 11:44 PM EST > See phone encounter ?LAB: H-Lipid Panel (Collection Date & Time - 06/14/2025 12:15 PM)?LDL 73.43 * Value Reference Range T RIG 61 30-150 - mg/dl * C HOL 140 140-200 - mg/dl * D LDL 73.43 L 100-129 - mg/dL * V LDL 12 0-40 - mg/dL * H DL 57 40-60 - mg/dl * C HLHDL 2.5 1-3.5 - * Kristine Mejia 06/14/2025 05: 11:44 PM EST > See phone encounter ?LAB: H-CMP (Collection Date & Time - 06/14/2025 12:15 PM)?Na 133* Value Reference Range N A 133 L 136-145 - mmol/L * K 3.9 3.5-5.1 - mmoL/L * C L 102 98-107 - mmol/L * C O2 25 22.0-30.0 - mmol/L * G AP 9.9 5-15 - mEq/L * B UN 12 7-17 - mg/dl * C REATT 0.60 0.52-1.04 - mg/dl * G FRAA 127 >60 - ML/MIN * E GFR 105 >60 - ml/min * G ONI 96 74-100 - mg/dl * C A 9.0 8.4-10.2 - mg/dl * B ILIT 0.8 0.2-1.3 - mg/dl * A ST 22 14-36 - U/L * A LT 16 12-78 - U/L * T P 6.7 6.3-8.2 - g/dl * A LB 3.8 3.5-5.0 - g/dl * G LOB 2.9 1.3-3.2 - g/dL * A GRATIO 1.3 1.1-1.8 - * A LP 91 38-126 - U/L * C RCLE 127 50-200 - mL/min * Kristine Mejia 06/14/2025 05: 11:44 PM EST > See phone encounter 3.?Vitamin D deficiency?LAB: H-VITAMIN D (Collection Date & Time - 06/14/2025 12:15 PM)?Normal* Value Reference Range T VITD 59.6 30-100 - ng/mL * Kristine Mejia 06/14/2025 05: 11:44 PM EST > See phone encounter 4.?Generalized anxiety disorder? Refill Escitalopram Oxalate Tablet, 20 MG, 1 tab(s), orally, once a day, 90 days, 90, Refills 1. ? * Procedure Codes: 1 036F TOBACCO NON-USER, 3074F SYST BP LT 130 MM HG, 3078F DIAST BP < 80 MM HG * Follow Up: 6 Months * Images: Billing Information: * Visit Code: 28885 Office Visit, Est Pt., Level 4. * Procedure Codes: 1036F TOBACCO NON-USER. 3074F SYST BP LT 130 MM HG. 3078F DIAST BP < 80 MM HG. * Electronic signature of Margarita King MD on 08/07/2025 at 05:40 PM EST Sign off status: Pending * Provider: Roque King M.D. Date: 08/12/2024 Generated for Mariama oakley/Kat/Bhavnaitting on: 05:40 PM EST History and Physical Notes * HPI (History of Present Illness) Category Sub-Category Detail Notes Category Not es Cardiology Blood Pressure Elevated Pt state s she is doing well and has no concerns at this time. Pt states she does need refills on medications Hyperlipidemia Pt is not fasting to day Examination Category Sub-Category Detail Notes Category Not es Cardiology Lungs: clear, no rales or wheezes Heart sounds: RRR, normal S1, S2 Carotid upstroke: no bruits Extremities: no leg edema Peripheral pulses: 2 plus bilateral General Appearance: pleasant, NAD
--- OUTSIDE RECORDS SUMMARY | 2025-08-07 17:41 | XMS_ITS | Patient Health Record ---
Author Organization [facility] Address [address] [facility] [address] [place] [id number] Care Team Providers Care Patient Service Specialist Name Role Phone Tavo King Primary Care Provider Chantelle Rosenbaum [phone] Allergies Allergen (clinical drug ingredient) Drug/Non Drug [...] 02:59:59 PM Interpretation:Abnormal Performing Lab: Notes/Report: Abnormal H-CMP Reviewed date:06/14/2025 05:11:53 PM Interpretation:Na 133 [...] AGRATIO 1.3 1.1-1.8 ALP 91 38-126 U/L H-Lipid Panel Reviewed date:06/14/2025 05:11:53 PM Interpretation:LDL 73.43 Performing Lab: Notes/Report: Patient Fasting? Y TRIG 61 30-150 mg/dl CHOL 140 140-200 mg/dl DLDL 73.43 100-129 mg/dL VLDL 12 0-40 mg/dL HDL 57 40-60 mg/dl CHLHDL 2.5 1-3.5 H-Microalbumine/Creatinine Reviewed date:06/14/2025 05:11:53 PM Interpretation:Micro/Alb 36.100 Performing Lab: Notes/Report: UCREAT 162 Not Estab. mg/dL Random urine reference range not established. 24 hour urine samples recommended. MICROALB 36.100 0-16.7 mg/L MALBCREAT 22.2 Units: mg/g creat Normal: 0 - 29 Moderately Increased: 30 - 300 Severely Increased: >300 H-VITAMIN D Reviewed date:06/14/2025 05:11:53 PM Interpretation:Normal Performing Lab: Notes/Report: TVITD 59.6 30-100 ng/mL Deficient <20 ng/mL Insufficient 20-30 ng/mL Sufficient 30-100 ng/mL Potential Toxicity >100 ng/mL H-TSH Reviewed date:06/14/2025 05:11:53 PM Interpretation:Normal Performing Lab: Notes/Report: TSH 2.43 0.465-4.68 uIU/mL H-BUN/CREAT Reviewed date:01/03/2025 11:13:47 AM Interpretation:normal Performing Lab: Notes/Report: BUN 9 7-17 mg/dl CREATT 0.70 0.52-1.04 mg/dl GFRAA 106 >60 ML/MIN EGFR 88 >60 ml/min P-Vitamin D 25-Hydroxy Reviewed date:12/13/2024 12:26:37 PM Interpretation:Normal Performing Lab: Notes/Report: CLIA: [id number] Ryley Mathis MD, Mathematics Improvement Teacher [address] [place] [address] , [place] [address] Test performed by [employer] Vitamin D 25-Hydroxy 43.2 30.0-100.0 ng/mL Interpretation of Vitamin D 25 OH: < 20 ng/mL - Deficiency 20 - 29 ng/mL - Insufficiency 30 - 100 ng/mL - Sufficiency > 100 ng/mL - Super-therapeutic- toxicity may occur above this level. Clinical correlation required. CTA : Neck Reviewed date:01/04/2025 08:12:17 AM Interpretation:bilateral maxillary sinus thickening Performing Lab: Notes/Report: bilateral maxillary sinus thickening Urinalysis - Inhouse Reviewed date:11/07/2024 02:24:04 PM Interpretation: Performing Lab: Notes/Report: P-Alkaline Phosphatase Isoen zymes Reviewed date:11/06/2024 11:57:43 AM Interpretation:AP 146, AP liver Calc 99 Performing Lab: Notes/Report: ALK-PHOSPHATASE BONE CALC 47 0-55 U/L ALK-PHOSPHATASE OTHER CALC 0 Performed By: [employer] [address] [place] [id number] Mathematics Improvement Teacher: Kiet Dowell MD, PhD CLIA Number: [id number] Alkaline Phosphatase 146 40-120 U/L ALK-PHOSPHATASE LIVER CALC 99 0-94 U/L INTERPRETIVE INFORMATION: Alk-Phosphatase Liver Calc Bone Specific Alkaline Phosphatase (1604085) and 5'-nucleotidase (9885229) may be useful in identifying disorders of bone and liver, respectively. P-Vitamin B12 Reviewed date:11/06/2024 11:57:43 AM Interpretation:Normal Performing Lab: Notes/Report: Test performed by [employer] [address] [place] [address] , [address], [place] [address] Ryley Mathis MD, Mathematics Improvement Teacher CLIA: [id number] Vitamin B12 097 900-0540 pg/mL P-Comprehensive Metabolic Pa rashid (CMP) Reviewed date:11/06/2024 11:57:43 AM Interpretation:AP 127 Performing Lab: Notes/Report: Test performed by [employer] [address] [place] [address] [address], [place] [address] Ryley Mathis MD, Mathematics Improvement Teacher CLIA: [id number] Sodium 138 135-145 mmol/L Potassium 4.3 3.5-5.3 [...] Interpretation:19.7 Performing Lab: Notes/Report: Test performed by [employer] [address] [place] [address] [address], [place] [address] Ryley Mathis MD, Mathematics Improvement Teacher CLIA: [id number] Vitamin D 25-Hydroxy 19.7 30.0-100.0 ng/mL Interpretation of Vitamin D 25 OH: < 20 ng/mL - Deficiency 20 - 29 ng/mL - Insufficiency 30 - 100 ng/mL - Sufficiency > 100 ng/mL - Super-therapeutic- toxicity may occur above this level. Clinical correlation required. Reason For Referral No Information Medications Medication SIG (Take, Route, Frequency, Duration) Notes Start Date End Date Status Irbesartan 150 MG 1 tab(s) orally once a day; Duration: 90 days Not-Takin g Escitalopram Oxalate 20 MG 1 tab(s) oral ly once a day; Duration: 90 days Active metroNIDAZOLE 500 MG 1 tablet Orally twi ce a day Active Immunizations Vaccine Route Administration Date Status Comme nts Tetanus Tdap-Adacel (over 7yrs) IM Intramuscular 04/02/2018 Administered Problems Problem Type SNOMED Code ICD Code Onset Dates Problem Status W/U Status Risk Notes Problem Sinusitis (34437517) Sinusitis (J32.9) Active c onfirmed Problem Vitamin D deficiency (37311182) Vitamin D deficiency (E55.9) Active confirmed Problem Essential hypertension (23108219) Essential hypertension (I10) Active confirmed Problem Generalized anxiety disorder (51495944) Generalized anxiety disorder (F41.1) Active confirmed Problem Chronic pain (98880507) Other chronic pain (G89.29) Active confirmed Problem Paresthesia (finding ) (94314135) Paresthesia of skin (R20.2) Active confirmed Problem Excessive thirst (13377235) Polydipsia (R63.1) Active confirmed Problem Pure hypercholesterolemia (182475728) Pure hypercholesterolemia (E78.00) Active confirmed Problem Obesity (841025307) Non morbid o besity (E66.9) Active confirmed Problem Primary hypertension (05411528) Primary hypertension (I10) Active confirmed Vital Signs Heart Rate 89 /min 08/07/2025 Blood pressure diastolic 68 mm Hg 08/07/2025 Height 64 in 08/07/2025 Blood pressure systolic 118 mm Hg 08/07/2025 Weight 165.6 lbs 08/07/2025 BMI 28.42 kg/m2 08/07/2025 Encounters Encounter Location Date [facility] [address] [place] [id number] 11/02/2024 Tavo [place] Polydipsia R63.1 ; Anesthesia of skin R20.0 ; Paresthesia of skin R20.2 ; Vitamin D deficiency E55.9 ; Alkaline phosphatase elevation R74.8 and Non morbid obesity E66.9 [facility] [address] [place] [id number] 11/07/2024 Tavo [place] Polydipsia R63.1 ; P yuria R82.81 and Microscopic hematuria R31.29 [facility] [address] [place] [id number] 12/09/2024 Tavo [place] Vitamin D deficiency E55.9 ; Essential hypertension I10 ; Generalized anxiety disorder F41.1 ; Non morbid obesity E66.9 and Vertebral artery stenosis, unspecified laterality I65.09 [facility] [address] [place], [place] [id number] 06/12/2025 Tavo [place] Essential hypertensi on I10 ; Pure hypercholesterolemia E78.00 ; Vitamin D deficiency E55.9 and Generalized anxiety disorder F41.1 [facility] [address] [place], [place] [id number] 08/07/2025 Tavo [place] Other hypotension I9 5.89 ; Other fatigue R53.83 ; Right-sided chest pain R07.9 and Vitamin D deficiency E55.9 [facility] [address] [place], [place] [id number] 07/03/2025 Tavo [place] [facility] [address] [place], [place] [id number] 11/02/2024 Tavo [place] [facility] [address] [place], [place] [id number] 11/06/2024 Tavo [place] [facility] [address] [place], [place] [id number] 11/09/2024 Tavo [place] [facility] [address] [place], [place] [id number] 01/04/2025 Tavo [place] [facility] [address] [place], [place] [id number] 06/14/2025 Tavo [place] Assessments Encounter Date Diagnosis (ICD Code) Assessment Notes Treatment Notes Treatment Clinical Notes Section Notes 11/02/2024 Anesthesia of skin (ICD-10 - R20.0) 11/02/2024 Polydipsia (ICD-10 - R63.1) 11/07/2024 Pyuria (ICD-10 - R82.81) 12/09/2024 Vitamin D deficiency (ICD-10 - E55.9) 12/09/2024 Essential hypertensi on (ICD-10 - I10) 11/07/2024 Polydipsia (ICD-10 - R63.1) 06/12/2025 Essential hypertensi on (ICD-10 - I10) 06/12/2025 Pure hypercholesterolemia (ICD-10 - E78.00) 08/07/2025 Other fatigue (ICD-1 0 - R53.83) 08/07/2025 Other hypotension (ICD-10 - I95.89) 08/07/2025 Right-sided chest pa in (ICD-10 - R07.9) 06/12/2025 Vitamin D deficiency (ICD-10 - E55.9) 11/07/2024 Microscopic hematuri a (ICD-10 - R31.29) 12/09/2024 Generalized anxiety disorder (ICD-10 - F41.1) 11/02/2024 Paresthesia of skin (ICD-10 - R20.2) 11/02/2024 Vitamin D deficiency (ICD-10 - E55.9) 12/09/2024 Non morbid obesity (ICD-10 - E66.9) 06/12/2025 Generalized anxiety disorder (ICD-10 - F41.1) 12/09/2024 Vertebral artery stenosis, unspecified laterality (ICD-10 - I65.09) Xray report from chiropractor reviewed, see report 11/02/2024 Alkaline phosphatase elevation (ICD-10 - R74.8) 08/07/2025 Vitamin D deficiency (ICD-10 - E55.9) 11/02/2024 Non morbid obesity (ICD-10 - E66.9) Plan Of Treatment Pending Test Test Name Order Date X ray : Chest 08/07/2025 H-CBC 08/07/2025 H-VITAMIN D 08/07/2025 H-CMP 08/07/2025 Next Appt Details Provider Name:Tavo costa, 08/07/2025 05:30:00 PM, [address], [address], [place], [phone], Provider Name:Tavo costa, 12/11/2025 09:00:00 AM, [address], [address], [place], [id number], Insurance Providers Payer Name Payer Address Payer Phone Subscriber Number Group Number Insured Name Patient Relationship to Insured Coverage Start Date Coverage End Date [facility] [address] [place] [address] [id number] Yris Alicea Self - patient is the insured Medical (General) History Medical History History ICD Code Hypertension Vitamin D deficiency Anxiety disorder kidney stones, calcium oxilate Surgical History Surgery Date(Month/Year) D&C colposcope laproscopy 2005 fibroid removed from vaginal wall cholecystectomy 03/09/2019 hysterectomy vaginal 2024 Hospitalization History Reason Date(Month/Year) Kidney Stones- [facility] ER 02/26/2013
--- NOTE | 2025-08-07 17:46 | XR_ITS ---
PROCEDURE INFORMATION: Exam: XR Chest Exam date and time: 08/07/2025 5:35 PM Age: 55 years old Clinical indication: Pain; Chest pressure; Additional info: RT sided chest pain TECHNIQUE: Imaging protocol: Radiologic exam of the chest. Views: 2 views. COMPARISON: CT CHEST WO CON 07/05/2024 10:04 AM FINDINGS: Lungs: Unremarkable. No consolidation. Pleural spaces: Unremarkable. No pleural effusion. No pneumothorax. Heart/Mediastinum: Unremarkable. No cardiomegaly. Bones/joints: Unremarkable. Organs: Prior cholecystectomy noted. IMPRESSION: No acute cardiopulmonary process.
[2025-08-07 18:05] LABS: Hematocrit 38.3 % (37.0-47.0); Hemoglobin 13.0 g/dL (12.2-16.2); Immature Granulocytes % 0.1 %; Mean Corpuscular HGB Conc 33.9 g/dL (31.8-35.4); Mean Corpuscular Hemoglobin 30.4 pg (27.0-31.2); Mean Corpuscular Volume 89.5 fl (81-99); Nucleated Red Blood Cells % 0 %; Platelet Count 234 K/mm3 (142-424); Red Blood Count 4.28 M/mm3 (4.20-5.40); Red Cell Distribution Width-SD 40.5 fL; White Blood Count 7.3 K/mm3 (4.8-10.8)
[2025-08-07 19:42] LABS: Albumin Level 4.1 g/dl (3.5-5.0); Chloride 104 mmol/L (98-107); Potassium 4.2 mmoL/L (3.5-5.1); Sodium 136 mmol/L (136-145)
[2025-08-07 19:45] LABS: Alanine Aminotransferase 20 U/L (12-78); Albumin/Globulin Ratio 1.5 (1.1-1.8); Alkaline Phosphatase 89 U/L (38-126); Anion Gap 9.2 mEq/L (5-15); Aspartate Amino Transferase 34 U/L (14-36); Bilirubin,Total 0.4 mg/dl (0.2-1.3); Blood Urea Nitrogen 12 mg/dl (7-17); Carbon Dioxide 27 mmol/L (22.0-30.0); Creatinine,Serum 0.60 mg/dl (0.52-1.04); Estimated Glomerular Filt Rate 105 ml/min (>60); GFR (African American) 127 ML/MIN (>60); Globulin 2.7 g/dL (1.3-3.2); Total Protein,Serum 6.8 g/dl (6.3-8.2)
[2025-08-07 19:46] LABS: Calcium 9.3 mg/dl (8.4-10.2); Glucose 84 mg/dl (74-100)
[2025-08-07 22:06] LABS: 25-OH Vitamin D, Total 67.3 ng/mL (30-100)
== END 2025-08-07 23:59 | disposition home or self-care (01) ==
LOC: RAD 17:39
PROVIDERS: PCP Family Medicine; Visit Provider Family Medicine
DX: E55.9 Vitamin D deficiency, unspecified (principal); I95.89 Other hypotension; R07.89 Other chest pain
CPT/HCPCS: 36415; 71046; 80053; 82306; 85025